=== PATIENT | female | born 1965 | race Caucasian/White ===

== ENCOUNTER 2019-03-13 18:10 | Observation (INO) | payer OTHER ==
[2019-03-13] MEDS ORDERED: Sodium Chloride 0.9% 10 ML Syringe FLUSH PRN (18:12)
[2019-03-13] MEDS ORDERED: Sodium Chloride 0.9% 2.5 ML Syringe FLUSH PRN (18:12)
[2019-03-13] MEDS ORDERED: Diltiazem 25 MG/5 ML SDV IVPUSH ONE ×2 (18:21→18:46)
[2019-03-13] MEDS ORDERED: Diltiazem 25 MG/5 ML SDV ONE (18:21)
[2019-03-13] MEDS ORDERED: Sodium Chloride 0.9% 1,000 ML IV ONE (18:23)
[2019-03-13] MEDS ORDERED: Aspirin 81 MG Tab.Chew PO ONE (18:24)
--- NOTE | 2019-03-13 18:27 | EDM.PDOC ---
ED HPI GENERAL MEDICAL PROBLEM - General Chief Complaint: Abdominal Pain Stated Complaint: ABD PAIN,SHORTNESS OF BREATH Time Seen by Provider: 03/13/19 18:51 - History of Present Illness INITIAL COMMENTS - FREE TEXT/NARRATIVE: HISTORY AND PHYSICAL: History of present illness: Patient is a 53-year-old female with history of atrial fibrillation with been off her medications for approximately 1 month due to personal reasons who presents now with concern of rapid heart rate. She denies chest pain nausea vomiting diaphoresis or other complaints she states she had been on metoprolol prior along with aspirin daily and states that she was in sinus rhythm prior. Patient also states she's had intermittent abdominal bloating without abdominal pain. Review of systems: As per history of present illness and below otherwise all systems reviewed and negative. Past medical history: As per history of present illness and as reviewed below otherwise noncontributory. Surgical history: As per history of present illness and as reviewed below otherwise noncontributory. Social history: No reported history of drug or alcohol abuse. Family history: As per history of present illness and as reviewed below otherwise noncontributory. Physical exam: HEENT: Atraumatic, normocephalic, pupils reactive, negative for conjunctival pallor or scleral icterus, mucous membranes moist, throat clear, neck supple, nontender, trachea midline. Lungs: Clear to auscultation, breath sounds equal bilaterally, chest nontender. Heart: S1S2, irregular irregular with a heart rate of approximately 180, negative for clicks, rubs, or JVD. Abdomen: Soft, nondistended, nontender. Negative for masses or hepatosplenomegaly. Negative for costovertebral tenderness. Pelvis: Stable nontender. Genitourinary: Deferred. Rectal: Deferred. Extremities: Atraumatic, negative for cords or calf pain. Neurovascular unremarkable. Neuro: Awake, alert, oriented. Cranial nerves II through XII unremarkable. Cerebellum unremarkable. Motor and sensory unremarkable throughout. Exam nonfocal. 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 abdomen Pain Score (Numeric/FACES): 8 - Related Data Allergies Allergy/AdvReac Type Severity Reaction Status Date / Time No Known Allergies Allergy Verified 03/13/19 18:23 Home Meds: Home Meds Metoprolol Tartrate [Lopressor] 10 mg PO BID 03/13/19 [History] ED ROS GENERAL - Review of Systems Review Of Systems: ROS reveals no pertinent complaints other than HPI. ED EXAM, GENERAL - Physical Exam Exam: See Below (dictation) Course - Vital Signs Last Recorded V/S: Last Vital Signs Temp 36.2 C 03/13/19 18:13 Pulse 148 H 03/13/19 18:31 Resp 18 03/13/19 18:31 BP 116/73 03/13/19 18:31 Pulse Ox 98 03/13/19 18:31 - Orders/Labs/Meds Orders: Active Orders 24 hr Category Date Time Status Patient Status [ADT] Stat ADT 03/13/19 18:31 Active EKG Documentation Completion [RC] STAT Care 03/13/19 18:12 Active Chest 1V Frontal [CR] Stat Exams 03/13/19 18:12 Taken B-TYPE NATRIURETIC PEPTIDE,BNP [CHEM] Stat Lab 03/13/19 18:16 Received UA W/MICROSCOPIC [URIN] Stat Lab 03/13/19 18:13 Ordered Sodium Chloride 0.9% [Normal Saline] 1,000 ml Med 03/13/19 18:23 Active IV STAT Sodium Chloride 0.9% [Saline Flush] Med 03/13/19 18:12 Active 10 ml FLUSH ASDIRECTED PRN Sodium Chloride 0.9% [Saline Flush] Med 03/13/19 18:12 Active 2.5 ml FLUSH ASDIRECTED PRN Saline Lock Insert [OM.PC] Stat Oth 03/13/19 18:12 Ordered Medication Orders Sodium Chloride (Normal Saline) 1,000 mls @ 999 mls/hr IV STAT ONE Stop: 03/13/19 19:23 Last Admin: 03/13/19 18:26 Dose: 999 mls/hr Sodium Chloride (Saline Flush) 10 ml FLUSH ASDIRECTED PRN PRN Reason: Keep Vein Open Last Admin: 03/13/19 18:26 Dose: 10 ml Sodium Chloride (Saline Flush) 2.5 ml FLUSH ASDIRECTED PRN PRN Reason: Keep Vein Open Last Admin: 03/13/19 18:26 Dose: 2.5 ml Labs: Laboratory Tests 03/13/19 03/13/19 03/13/19 Range/Units 18:16 18:16 18:16 WBC 8.01 (4.0-11.0) K/uL RBC 3.98 L (4.30-5.90) M/uL Hgb 15.2 (12.0-16.0) g/dL Hct 45.9 (36.0-46.0) % MCV 115.3 H (80.0-98.0) fL MCH 38.2 H (27.0-32.0) pg MCHC 33.1 (31.0-37.0) g/dL RDW Std Deviation 64.5 H (28.0-62.0) fl RDW Coeff of Papo 15 (11.0-15.0) % Plt Count 152 (150-400) K/uL MPV 13.00 H (7.40-12.00) fL Neut % (Auto) 68.1 (48.0-80.0) % Lymph % (Auto) 21.8 (16.0-40.0) % [place] % (Auto) 9.0 (0.0-15.0) % Eos % (Auto) 0.7 (0.0-7.0) % Baso % (Auto) 0.4 (0.0-1.5) % Neut # (Auto) 5.5 (1.4-5.7) K/uL Lymph # (Auto) 1.8 (0.6-2.4) K/uL [place] # (Auto) 0.7 (0.0-0.8) K/uL Eos # (Auto) 0.1 (0.0-0.7) K/uL Baso # (Auto) 0.0 (0.0-0.1) K/uL Nucleated RBC % 0.0 /100WBC Nucleated RBCs # 0 K/uL INR 1.53 Sodium 139 (136-145) mmol/L Potassium 3.9 (3.5-5.1) mmol/L Chloride 103 (98-107) mmol/L Carbon Dioxide 22.6 (21.0-32.0) mmol/L BUN 15 (7.0-18.0) mg/dL Creatinine 1.0 (0.6-1.0) mg/dL Est Cr Clr Drug Dosing 54.89 mL/min Estimated GFR (MDRD) 57.6 ml/min Glucose 143 H (74-106) mg/dL Calcium 9.2 (8.5-10.1) mg/dL Total Bilirubin 1.6 H (0.2-1.0) mg/dL AST 103 H (15-37) IU/L ALT 83 H (14-63) IU/L Alkaline Phosphatase 181 H (46-116) U/L Troponin I < 0.050 (0.000-0.056) ng/mL Total Protein 6.3 L (6.4-8.2) g/dL Albumin 3.2 L (3.4-5.0) g/dL Globulin 3.1 (2.6-4.0) g/dL Albumin/Globulin Ratio 1.0 (0.9-1.6) Meds: Medications Generic Name Dose Route Start Last Admin Trade Name Oumarq PRN Reason Stop Dose Admin Sodium Chloride 1,000 mls @ 999 mls/hr 03/13/19 18:23 03/13/19 18:26 Normal Saline IV 03/13/19 19:23 999 mls/hr STAT ONE Administration Sodium Chloride 10 ml 03/13/19 18:12 03/13/19 18:26 Saline Flush FLUSH 10 ml ASDIRECTED PRN Administration Keep Vein Open Sodium Chloride 2.5 ml 03/13/19 18:12 03/13/19 18:26 Saline Flush FLUSH 2.5 ml ASDIRECTED PRN Administration Keep Vein Open Discontinued Medications Generic Name Dose Route Start Last Admin Trade Name Laquita PRN Reason Stop Dose Admin Aspirin 324 mg 03/13/19 18:24 03/13/19 18:29 Aspirin PO 03/13/19 18:25 324 mg ONETIME ONE Administration Diltiazem HCl 25 mg 03/13/19 18:21 03/13/19 18:26 Diltiazem IVPUSH 03/13/19 18:22 25 mg ONETIME ONE Administration Diltiazem HCl Confirm 03/13/19 18:21 03/13/19 18:28 Diltiazem Administered 03/13/19 18:22 Not Given Dose 25 mg .ROUTE .STK-MED ONE Diltiazem HCl 25 mg 03/13/19 18:46 Diltiazem IVPUSH 03/13/19 18:47 ONETIME ONE Metoprolol Tartrate 50 mg 03/13/19 18:49 Lopressor PO 03/13/19 18:50 ONETIME ONE Departure - Departure Time of Disposition: 18:51 Disposition: Refer to Observation Condition: Good Clinical Impression: Atrial fibrillation with rapid ventricular response - Discharge Information Referrals: PCP,None [Primary Care Provider] - Forms: ED Department Discharge - My Orders Last 24 Hours: My Active Orders 03/13/19 18:16 B-TYPE NATRIURETIC PEPTIDE,BNP [CHEM] Stat 03/13/19 18:23 Sodium Chloride 0.9% [Normal Saline] 1,000 ml IV STAT 03/13/19 18:31 Patient Status [ADT] Stat - Assessment/Plan Last 24 Hours: My Active Orders 03/13/19 18:16 B-TYPE NATRIURETIC PEPTIDE,BNP [CHEM] Stat 03/13/19 18:23 Sodium Chloride 0.9% [Normal Saline] 1,000 ml IV STAT 03/13/19 18:31 Patient Status [ADT] Stat
[2019-03-13 18:47] LABS: BLOOD UREA NITROGEN,BUN 15 mg/dL (7.0-18.0); CARBON DIOXIDE,CO2 22.6 mmol/L (21.0-32.0); CHLORIDE,CL 103 mmol/L (98-107); GLUCOSE RANDOM 143 mg/dL (74-106); POTASSIUM,K 3.9 mmol/L (3.5-5.1); SODIUM,NA 139 mmol/L (136-145)
[2019-03-13] MEDS ORDERED: Metoprolol Tartrate 50 MG Tab PO ONE (18:49)
--- NOTE | 2019-03-13 19:01 | CR ---
Shortness of breath. Single-view chest x-ray. No comparison studies are available. Findings: Enlarged cardiac silhouette. Bibasilar atelectasis and/or infiltrates. Slight blunting of the costophrenic angles could represent effusions. Old left posterior rib fractures. Dictated by Lauren Ortiz MD @ Mar 13 2019 6:59PM Signed by Dr. Lauren Ortiz @ Mar 13 2019 7:00PM
[2019-03-13] MEDS: Sodium Chloride 0.9% 1,000 ML IV SCH ×2 (19:24→23:25)
[2019-03-13] MEDS ORDERED: Sodium Chloride 0.9% 1,000 ML IV SCH (19:30)
[2019-03-13] MEDS ORDERED: Furosemide 40 MG Tab PO ONE (19:39)
[2019-03-13] MEDS ORDERED: Diltiazem 25 MG/5 ML SDV IVPUSH PRN (19:46)
--- NOTE | 2019-03-13 19:57 | PCM.HP.2 ---
<Edmond Gamble - Last Filed: 03/13/19 19:50> H&P History of Present Illness - General Date of Service: 03/13/19 Admit Problem/Dx: Admission Diagnosis/Problem Admission Diagnosis/Problem Atrial fibrillation with rapid ventricular response - History of Present Illness Initial Comments - Free Text/Narative: Patient is a 56-year-old female with a past medical history of A. fib, anxiety; presenting today with abdominal discomfort; states the abdomen was swelling for the past 3-4 weeks; initially in the epigastric area and then moved to her lower abdomen and then into her sides. Of note patient has not taken her metoprolol for 3 to 4 weeks; recently moved here from [place] and has not refilled her medications secondary to not having a PCP. For 2 weeks patient also has been using [id number] decongestants including Sudafed to help with her cough and congestion. Patient however denies any fevers, chills, body aches, chest pain, shortness of breath, diarrhea. Endorses some mild constipation for which she has used vavr-rta-[id number] medications including Pedialyte; also endorsing some reduced appetite. Patient states she smokes 10 cigarettes daily; sometimes more on other days. Patient also does not endorse heavy alcohol use. abdomen Pain Score (Numeric/FACES): 8 - Related Data Allergies/Adverse Reactions: Allergies Allergy/AdvReac Type Severity Reaction Status Date / Time No Known Allergies Allergy Verified 03/13/19 20:55 Home Medications: Home Meds Metoprolol Tartrate [Lopressor] 10 mg PO BID 03/13/19 [History] Past Medical History HEENT History: Reports: None Cardiovascular History: Reports: Afib, Hypertension Respiratory History: Reports: None Gastrointestinal History: Reports: None Genitourinary History: Reports: Other (See Below) Other Genitourinary History: hx of kidney infections [employer] History: Reports: Musculoskeletal History: Reports: None Neurological History: Reports: None Psychiatric History: Reports: None Endocrine/Metabolic History: Reports: None Hematologic History: Reports: None Immunologic History: Reports: None Oncologic (Cancer) History: Reports: None Dermatologic History: Reports: None - Infectious Disease History Infectious Disease History: Reports: Chicken Pox - Past Surgical History Head Surgeries/Procedures: Reports: None HEENT Surgical History: Reports: None Cardiovascular Surgical History: Reports: None Respiratory Surgical History: Reports: None GI Surgical History: Reports: None Female Surgical History: Reports: Section, Other (See Below) Other Female Surgeries/Procedures: partial tubal ligation Endocrine Surgical History: Reports: None Neurological Surgical History: Reports: None Musculoskeletal Surgical History: Reports: None Oncologic Surgical History: Reports: None Dermatological Surgical History: Reports: None Social & Family History - Family History Family Medical History: Noncontributory - Tobacco Use Smoking Status *Q: Current Every Day Smoker Years of Tobacco use: 35 Packs/Tins Daily: 0.3 - Caffeine Use Caffeine Use: Reports: Coffee, Soda - Recreational Drug Use Recreational Drug Use: No H&P Review of Systems - Review of Systems: Review Of Systems: See Below General: Reports: No Symptoms. Denies: Fever, Chills HEENT: Reports: No Symptoms. Denies: Headaches Pulmonary: Reports: No Symptoms, Cough. Denies: Shortness of Breath Gastrointestinal: Reports: Constipation, Decreased Appetite, Distension. Denies : Abdominal Pain, Diarrhea Genitourinary: Reports: No Symptoms Musculoskeletal: Reports: No Symptoms Skin: Reports: No Symptoms Psychiatric: Reports: No Symptoms Neurological: Reports: No Symptoms. Denies: Confusion, Dizziness, Headache Exam - Exam Exam: See Below - Vital Signs Vital Signs: Last Vital Signs Temp 97.2 F 03/13/19 18:13 Pulse 129 H 03/13/19 19:27 Resp 22 H 03/13/19 19:27 BP 124/72 03/13/19 19:27 Pulse Ox 92 L 03/13/19 19:27 Weight: 58.967 kg - Exam Quality Assessment: No: Supplemental Oxygen General: Alert, Oriented HEENT: EOMI, Mucosa Moist & [place], Posterior Pharynx Clear, Other (mild yellowing of eyes; possibly baseline.) Neck: Supple, Trachea Midline Lungs: Clear to Auscultation, Normal Respiratory Effort Cardiovascular: Regular Rhythm, Tachycardia GI/Abdominal Exam: Non-Tender, No Distention, No Mass, Other (negative Stevens' s. mild swelling however no overt fluid wave; no organomegaly. No point tenderness. No rebound tenderness.). No: Rebound, Hepatomegaly Back Exam: Normal Inspection Extremities: Normal Range of Motion, Non-Tender, Normal Capillary Refill, Other (+1 pitting edema bilateral lower extremities up to two thirds of legs) Skin: Warm, Dry, Intact Neurological: Cranial Nerves Intact Neuro Extensive - Mental Status: Alert, Oriented x3 Neuro Extensive - Motor, Sensory, Reflexes: CN II-XII Intact Psychiatric: Alert, Anxious (mild) - Patient Data Lab Results Last 24 hrs: Laboratory Results - last 24 hr 03/13/19 03/13/19 03/13/19 Range/Units 18:16 18:16 18:16 WBC 8.01 (4.0-11.0) K/uL RBC 3.98 L (4.30-5.90) M/uL Hgb 15.2 (12.0-16.0) g/dL Hct 45.9 (36.0-46.0) % MCV 115.3 H (80.0-98.0) fL MCH 38.2 H (27.0-32.0) pg MCHC 33.1 (31.0-37.0) g/dL RDW Std Deviation 64.5 H (28.0-62.0) fl RDW Coeff of Papo 15 (11.0-15.0) % Plt Count 152 (150-400) K/uL MPV 13.00 H (7.40-12.00) fL Neut % (Auto) 68.1 (48.0-80.0) % Lymph % (Auto) 21.8 (16.0-40.0) % Mclennan % (Auto) 9.0 (0.0-15.0) % Eos % (Auto) 0.7 (0.0-7.0) % Baso % (Auto) 0.4 (0.0-1.5) % Neut # (Auto) 5.5 (1.4-5.7) K/uL Lymph # (Auto) 1.8 (0.6-2.4) K/uL Mclennan # (Auto) 0.7 (0.0-0.8) K/uL Eos # (Auto) 0.1 (0.0-0.7) K/uL Baso # (Auto) 0.0 (0.0-0.1) K/uL Nucleated RBC % 0.0 /100WBC Nucleated RBCs # 0 K/uL INR 1.53 Sodium 139 (136-145) mmol/L Potassium 3.9 (3.5-5.1) mmol/L Chloride 103 (98-107) mmol/L Carbon Dioxide 22.6 (21.0-32.0) mmol/L BUN 15 (7.0-18.0) mg/dL Creatinine 1.0 (0.6-1.0) mg/dL Est Cr Clr Drug Dosing 54.89 mL/min Estimated GFR (MDRD) 57.6 ml/min Glucose 143 H (74-106) mg/dL Calcium 9.2 (8.5-10.1) mg/dL Total Bilirubin 1.6 H (0.2-1.0) mg/dL AST 103 H (15-37) IU/L ALT 83 H (14-63) IU/L Alkaline Phosphatase 181 H (46-116) U/L Troponin I < 0.050 (0.000-0.056) ng/mL B-Natriuretic Peptide (<100) PG/ML Total Protein 6.3 L (6.4-8.2) g/dL Albumin 3.2 L (3.4-5.0) g/dL Globulin 3.1 (2.6-4.0) g/dL Albumin/Globulin Ratio 1.0 (0.9-1.6) Urine Color Urine Appearance Urine pH (5.0-8.0) Ur Specific [place] (1.001-1.035) Urine Protein (NEGATIVE) mg/dL Urine Glucose (UA) (NEGATIVE) mg/dL Urine Ketones (NEGATIVE) mg/dL Urine Occult Blood (NEGATIVE) Urine Nitrite (NEGATIVE) Urine Bilirubin (NEGATIVE) Urine Ictotest Urine Urobilinogen (<2.0) EU/dL Ur Leukocyte Esterase (NEGATIVE) Urine RBC (0-2/HPF) Urine WBC (0-5/HPF) Ur Epithelial Cells (NONE-FEW) Urine Bacteria (NEGATIVE) Hyaline Casts (0-2/LPF) Urine Mucus (NONE-MOD) 03/13/19 03/13/19 Range/Units 18:16 19:14 WBC (4.0-11.0) K/uL RBC (4.30-5.90) M/uL Hgb (12.0-16.0) g/dL Hct (36.0-46.0) % MCV (80.0-98.0) fL MCH (27.0-32.0) pg MCHC (31.0-37.0) g/dL RDW Std Deviation (28.0-62.0) fl RDW Coeff of Papo (11.0-15.0) % Plt Count (150-400) K/uL MPV (7.40-12.00) fL Neut % (Auto) (48.0-80.0) % Lymph % (Auto) (16.0-40.0) % Mclennan % (Auto) (0.0-15.0) % Eos % (Auto) (0.0-7.0) % Baso % (Auto) (0.0-1.5) % Neut # (Auto) (1.4-5.7) K/uL Lymph # (Auto) (0.6-2.4) K/uL [place]clennan # (Auto) (0.0-0.8) K/uL Eos # (Auto) (0.0-0.7) K/uL Baso # (Auto) (0.0-0.1) K/uL Nucleated RBC % /100WBC Nucleated RBCs # K/uL INR Sodium (136-145) mmol/L Potassium (3.5-5.1) mmol/L Chloride (98-107) mmol/L Carbon Dioxide (21.0-32.0) mmol/L BUN (7.0-18.0) mg/dL Creatinine (0.6-1.0) mg/dL Est Cr Clr Drug Dosing mL/min Estimated GFR (MDRD) ml/min Glucose (74-106) mg/dL Calcium (8.5-10.1) mg/dL Total Bilirubin (0.2-1.0) mg/dL AST (15-37) IU/L ALT (14-63) IU/L Alkaline Phosphatase (46-116) U/L Troponin I (0.000-0.056) ng/mL B-Natriuretic Peptide 1103 H (<100) PG/ML Total Protein (6.4-8.2) g/dL Albumin (3.4-5.0) g/dL Globulin (2.6-4.0) g/dL Albumin/Globulin Ratio (0.9-1.6) Urine Color DARK YELLOW Urine Appearance SLT CLOUDY Urine pH 5.5 (5.0-8.0) Ur Specific [place] >= 1.030 (1.001-1.035) Urine Protein 100 H (NEGATIVE) mg/dL Urine Glucose (UA) NEGATIVE (NEGATIVE) mg/dL Urine Ketones NEGATIVE (NEGATIVE) mg/dL Urine Occult Blood TRACE-INTACT H (NEGATIVE) Urine Nitrite POSITIVE H (NEGATIVE) Urine Bilirubin MODERATE H (NEGATIVE) Urine Ictotest POSITIVE Urine Urobilinogen 2.0 H (<2.0) EU/dL Ur Leukocyte Esterase SMALL H (NEGATIVE) Urine RBC 1-3 (0-2/HPF) Urine WBC 4-7 (0-5/HPF) Ur Epithelial Cells FEW (NONE-FEW) Urine Bacteria 3+ H (NEGATIVE) Hyaline Casts 1-3 (0-2/LPF) Urine Mucus MODERATE (NONE-MOD) Result Diagrams: 03/13/19 18:16 03/13/19 18:16 - Problem List (1) Anxiety SNOMED Code(s): 98549386 ICD Code: F41.9 - ANXIETY DISORDER, UNSPECIFIED Status: Acute Current Visit: Yes (2) Medical non-compliance SNOMED Code(s): 484582055 ICD Code: Z91.19 - PATIENT'S NONCOMPLIANCE [facility] Status: Acute Current Visit: Yes (3) Transaminitis SNOMED Code(s): 009453935, 383641507 ICD Code: R74.0 - NONSPEC ELEV OF LEVELS OF TRANSAMNS & LACTIC ACID DEHYDRGNSE Status: Acute Current Visit: Yes (4) Macrocytic anemia SNOMED Code(s): 84296522 ICD Code: D53.9 - NUTRITIONAL ANEMIA, UNSPECIFIED Status: Acute Current Visit: Yes (5) Hyperbilirubinemia SNOMED Code(s): 52685908 ICD Code: E80.6 - OTHER DISORDERS OF BILIRUBIN METABOLISM Status: Acute Current Visit: Yes (6) Atrial fibrillation with rapid ventricular response SNOMED Code(s): 414010115663312 ICD Code: I48.91 - UNSPECIFIED ATRIAL FIBRILLATION Status: Acute Current Visit: Yes Problem List Initiated/Reviewed/Updated: Yes Orders Last 24hrs: Active Orders 24 hr Category Date Time Status Patient Status [ADT] Stat ADT 03/13/19 18:31 Active Intake and Output Strict [RC] ASDIRECTED Care 03/13/19 19:31 Active Telemetry Monitoring [Cardiac Monitoring] [RC] . Care 03/13/19 19:31 Active DIRECTED Vital Signs [RC] PER UNIT ROUTINE Care 03/13/19 19:31 Active Heart Healthy Diet [DIET] Diet 03/14/19 Breakfast Active Echo 2D wo Cont [US] Stat Exams 03/13/19 19:43 Ordered Gallbladder [Abdomen Ltd] [US] Routine Exams 03/13/19 19:43 Ordered CBC WITH AUTO DIFF [HEME] AM Lab 03/14/19 05:11 Ordered CBC WITH AUTO DIFF [HEME] AM Lab 03/15/19 05:11 Ordered CBC WITH AUTO DIFF [HEME] AM Lab 03/16/19 05:11 Ordered COMPREHENSIVE METABOLIC PN,CMP [CHEM] AM Lab 03/14/19 05:11 Ordered COMPREHENSIVE METABOLIC PN,CMP [CHEM] AM Lab 03/15/19 05:11 Ordered COMPREHENSIVE METABOLIC PN,CMP [CHEM] AM Lab 03/16/19 05:11 Ordered COMPREHENSIVE METABOLIC PN,CMP [CHEM] AM Lab 03/17/19 05:11 Ordered Diltiazem Med 03/13/19 19:46 Ordered 20 mg IVPUSH ONETIME PRN Enoxaparin [Lovenox] Med 03/13/19 19:45 Ordered 60 mg SUBCUT Q12H Sodium Chloride 0.9% [Normal Saline] 1,000 ml Med 03/13/19 19:30 Active IV ASDIRECTED Sodium Chloride 0.9% [Saline Flush] Med 03/13/19 18:12 Active 10 ml FLUSH ASDIRECTED PRN Sodium Chloride 0.9% [Saline Flush] Med 03/13/19 18:12 Active 2.5 ml FLUSH ASDIRECTED PRN Saline Lock Insert [OM.PC] Stat Oth 03/13/19 18:12 Ordered Code Status [Resuscitation Status] Routine Resus Stat 03/13/19 19:30 Ordered Medication Orders Diltiazem HCl (Diltiazem) 20 mg IVPUSH ONETIME PRN PRN Reason: Tachycardia Enoxaparin Sodium (Lovenox) 60 mg SUBCUT Q12H BRITTANY Sodium Chloride (Normal Saline) 1,000 mls @ 150 mls/hr IV ASDIRECTED BRITTANY Last Admin: 03/13/19 19:24 Dose: 150 mls/hr Sodium Chloride (Saline Flush) 10 ml FLUSH ASDIRECTED PRN PRN Reason: Keep Vein Open Last Admin: 03/13/19 18:26 Dose: 10 ml Sodium Chloride (Saline Flush) 2.5 ml FLUSH ASDIRECTED PRN PRN Reason: Keep Vein Open Last Admin: 03/13/19 18:26 Dose: 2.5 ml Assessment/Plan Comment:: Assessment: 1. A. fib with RVR secondary to noncompliance and [id number] decongestant use. 2. Elevated BNP 3. Transaminitis 4. Elevated bilirubin 5. Macrocytic anemia 5. Past medical history: A. fib, anxiety, tobacco abuse Admit patient to observation. Vitals per routine. Intake outtake :strict . Full code. Diet: Heart healthy. DVT prophylaxis: Lovenox 1 mg/kg Q12 hours 1. A. fib with RVR: Telemetry. Rate control with metoprolol 50 mg; repeat metoprolol in a.m.; when necessary dose of IV Cardizem 20 mg for rate greater than 150. 2. Elevated BNP: 40 of Lasix by mouth one-time dose CBC, CMP, in a.m. Echocardiogram will be ordered. Chest x-ray: Mild cardiomegaly; no acute infiltrates; awaiting official read 3. Tobacco abuse: Nicotine patch 14. 4. Transaminitis: Continue to monitor.right upper quadrant ultrasound. Repeat LFTs. 5. Elevated bilirubin: Continue to monitor.possibly secondary to alcohol use 6. Macrocytic anemia: We'll order folate and B12. <Sammy Cobian - Last Filed: 03/14/19 07:14> H&P History of Present Illness - General Admit Problem/Dx: Admission Diagnosis/Problem Admission Diagnosis/Problem Atrial fibrillation with rapid ventricular response I have examined the patient independently of medical radiation therapist, Dr. Mavis MD. I have discussed the case with him. I have reviewed and agree with the plan of care as outlined for the patient by him. Please see orders. Also with elevated AST/ALT. US liver ordered. Exam - Vital Signs Vital Signs: Last Vital Signs Temp 37.1 C 03/14/19 04:00 Pulse 116 H 03/14/19 04:00 Resp 22 H 03/14/19 04:00 BP 103/75 03/14/19 04:00 Pulse Ox 92 L 03/14/19 04:00 - Patient Data Lab Results Last 24 hrs: Laboratory Results - last 24 hr 03/13/19 03/13/19 03/13/19 Range/Units 18:16 18:16 18:16 WBC 8.01 (4.0-11.0) K/uL RBC 3.98 L (4.30-5.90) M/uL Hgb 15.2 (12.0-16.0) g/dL Hct 45.9 (36.0-46.0) % MCV 115.3 H (80.0-98.0) fL MCH 38.2 H (27.0-32.0) pg MCHC 33.1 (31.0-37.0) g/dL RDW Std Deviation 64.5 H (28.0-62.0) fl RDW Coeff of Papo 15 (11.0-15.0) % Plt Count 152 (150-400) K/uL MPV 13.00 H (7.40-12.00) fL Neut % (Auto) 68.1 (48.0-80.0) % Lymph % (Auto) 21.8 (16.0-40.0) % [place] % (Auto) 9.0 (0.0-15.0) % Eos % (Auto) 0.7 (0.0-7.0) % Baso % (Auto) 0.4 (0.0-1.5) % Neut # (Auto) 5.5 (1.4-5.7) K/uL Lymph # (Auto) 1.8 (0.6-2.4) K/uL [place] # (Auto) 0.7 (0.0-0.8) K/uL Eos # (Auto) 0.1 (0.0-0.7) K/uL Baso # (Auto) 0.0 (0.0-0.1) K/uL Nucleated RBC % 0.0 /100WBC Nucleated RBCs # 0 K/uL INR 1.53 Sodium 139 (136-145) mmol/L Potassium 3.9 (3.5-5.1) mmol/L Chloride 103 (98-107) mmol/L Carbon Dioxide 22.6 (21.0-32.0) mmol/L BUN 15 (7.0-18.0) mg/dL Creatinine 1.0 (0.6-1.0) mg/dL Est Cr Clr Drug Dosing 54.89 mL/min Estimated GFR (MDRD) 57.6 ml/min Glucose 143 H (74-106) mg/dL Calcium 9.2 (8.5-10.1) mg/dL Total Bilirubin 1.6 H (0.2-1.0) mg/dL AST 103 H (15-37) IU/L ALT 83 H (14-63) IU/L Alkaline Phosphatase 181 H (46-116) U/L Troponin I < 0.050 (0.000-0.056) ng/mL B-Natriuretic Peptide (<100) PG/ML Total Protein 6.3 L (6.4-8.2) g/dL Albumin 3.2 L (3.4-5.0) g/dL Globulin 3.1 (2.6-4.0) g/dL Albumin/Globulin Ratio 1.0 (0.9-1.6) Urine Color Urine Appearance Urine pH (5.0-8.0) Ur Specific [place] (1.001-1.035) Urine Protein (NEGATIVE) mg/dL Urine Glucose (UA) (NEGATIVE) mg/dL Urine Ketones (NEGATIVE) mg/dL Urine Occult Blood (NEGATIVE) Urine Nitrite (NEGATIVE) Urine Bilirubin (NEGATIVE) Urine Ictotest Urine Urobilinogen (<2.0) EU/dL Ur Leukocyte Esterase (NEGATIVE) Urine RBC (0-2/HPF) Urine WBC (0-5/HPF) Ur Epithelial Cells (NONE-FEW) Urine Bacteria (NEGATIVE) Hyaline Casts (0-2/LPF) Urine Mucus (NONE-MOD) 03/13/19 03/13/19 03/14/19 Range/Units 18:16 19:14 06:17 WBC 11.57 H (4.0-11.0) K/uL RBC 3.79 L (4.30-5.90) M/uL Hgb 14.6 (12.0-16.0) g/dL Hct 44.3 (36.0-46.0) % MCV 116.9 H (80.0-98.0) fL MCH 38.5 H (27.0-32.0) pg MCHC 33.0 (31.0-37.0) g/dL RDW Std Deviation 64.7 H (28.0-62.0) fl RDW Coeff of Papo 15 (11.0-15.0) % Plt Count 143 L (150-400) K/uL MPV 13.20 H (7.40-12.00) fL Neut % (Auto) 76.1 (48.0-80.0) % Lymph % (Auto) 11.9 L (16.0-40.0) % [place] % (Auto) 11.7 (0.0-15.0) % Eos % (Auto) 0.1 (0.0-7.0) % Baso % (Auto) 0.2 (0.0-1.5) % Neut # (Auto) 8.8 H (1.4-5.7) K/uL Lymph # (Auto) 1.4 (0.6-2.4) K/uL [place] # (Auto) 1.4 H (0.0-0.8) K/uL Eos # (Auto) 0.0 (0.0-0.7) K/uL Baso # (Auto) 0.0 (0.0-0.1) K/uL Nucleated RBC % 0.6 /100WBC Nucleated RBCs # 0 K/uL INR Sodium (136-145) mmol/L Potassium (3.5-5.1) mmol/L Chloride (98-107) mmol/L Carbon Dioxide (21.0-32.0) mmol/L BUN (7.0-18.0) mg/dL Creatinine (0.6-1.0) mg/dL Est Cr Clr Drug Dosing mL/min Estimated GFR (MDRD) ml/min Glucose (74-106) mg/dL Calcium (8.5-10.1) mg/dL Total Bilirubin (0.2-1.0) mg/dL AST (15-37) IU/L ALT (14-63) IU/L Alkaline Phosphatase (46-116) U/L Troponin I (0.000-0.056) ng/mL B-Natriuretic Peptide 1103 H (<100) PG/ML Total Protein (6.4-8.2) g/dL Albumin (3.4-5.0) g/dL Globulin (2.6-4.0) g/dL Albumin/Globulin Ratio (0.9-1.6) Urine Color DARK YELLOW Urine Appearance SLT CLOUDY Urine pH 5.5 (5.0-8.0) Ur Specific [place] >= 1.030 (1.001-1.035) Urine Protein 100 H (NEGATIVE) mg/dL Urine Glucose (UA) NEGATIVE (NEGATIVE) mg/dL Urine Ketones NEGATIVE (NEGATIVE) mg/dL Urine Occult Blood TRACE-INTACT H (NEGATIVE) Urine Nitrite POSITIVE H (NEGATIVE) Urine Bilirubin MODERATE H (NEGATIVE) Urine Ictotest POSITIVE Urine Urobilinogen 2.0 H (<2.0) EU/dL Ur Leukocyte Esterase SMALL H (NEGATIVE) Urine RBC 1-3 (0-2/HPF) Urine WBC 4-7 (0-5/HPF) Ur Epithelial Cells FEW (NONE-FEW) Urine Bacteria 3+ H (NEGATIVE) Hyaline Casts 1-3 (0-2/LPF) Urine Mucus MODERATE (NONE-MOD) Result Diagrams: 03/14/19 06:17 03/13/19 18:16 Orders Last 24hrs: Active Orders 24 hr Category Date Time Status Patient Status [ADT] Stat ADT 03/13/19 18:31 Active EKG 12 Lead [EKG Documentation Completion] [RC] AM Care 03/14/19 06:47 Active Intake and Output Strict [RC] ASDIRECTED Care 03/13/19 19:31 Active Telemetry Monitoring [Cardiac Monitoring] [RC] Q8H Care 03/13/19 19:31 Active Vital Signs [RC] PER UNIT ROUTINE Care 03/13/19 19:31 Active Heart Healthy Diet [DIET] Diet 03/14/19 Breakfast Active Echo 2D wo Cont [US] Stat Exams 03/13/19 19:43 Ordered Gallbladder [Abdomen Ltd] [US] Routine Exams 03/13/19 19:43 Ordered CBC WITH AUTO DIFF [HEME] AM Lab 03/15/19 05:11 Ordered CBC WITH AUTO DIFF [HEME] AM Lab 03/16/19 05:11 Ordered COMPREHENSIVE METABOLIC PN,CMP [CHEM] AM Lab 03/14/19 06:17 Received COMPREHENSIVE METABOLIC PN,CMP [CHEM] AM Lab 03/15/19 05:11 Ordered COMPREHENSIVE METABOLIC PN,CMP [CHEM] AM Lab 03/16/19 05:11 Ordered COMPREHENSIVE METABOLIC PN,CMP [CHEM] AM Lab 03/17/19 05:11 Ordered FOLIC ACID [CHEM] Routine Lab 03/14/19 06:17 Received VITAMIN B12 [CHEM] Routine Lab 03/14/19 06:17 Received Diltiazem Med 03/13/19 19:46 Active 20 mg IVPUSH ONETIME PRN Enoxaparin [Lovenox] Med 03/13/19 20:00 Active 60 mg SUBCUT Q12H Metoprolol Tartrate [Lopressor] Med 03/14/19 08:00 Pending 10 mg PO BID Ondansetron [Zofran] Med 03/13/19 21:51 Active 4 mg IVPUSH Q6H PRN Sodium Chloride 0.9% [Normal Saline] 1,000 ml Med 03/13/19 19:30 Active IV ASDIRECTED Sodium Chloride 0.9% [Normal Saline] 500 ml Med 03/13/19 22:00 Active IV .BOLUS Sodium Chloride 0.9% [Saline Flush] Med 03/13/19 18:12 Active 10 ml FLUSH ASDIRECTED PRN Sodium Chloride 0.9% [Saline Flush] Med 03/13/19 18:12 Active 2.5 ml FLUSH ASDIRECTED PRN Temazepam [Restoril] Med 03/13/19 20:00 Active 15 mg PO BEDTIME PRN Saline Lock Insert [OM.PC] Stat Oth 03/13/19 18:12 Ordered Code Status [Resuscitation Status] Routine Resus Stat 03/13/19 19:30 Ordered Medication Orders Diltiazem HCl (Diltiazem) 20 mg IVPUSH ONETIME PRN PRN Reason: Tachycardia Enoxaparin Sodium (Lovenox) 60 mg SUBCUT Q12H [facility] Last Admin: 03/13/19 21:23 Dose: 60 mg Sodium Chloride (Normal Saline) 1,000 mls @ 150 mls/hr IV ASDIRECTED BRITTANY Last Admin: 03/13/19 23:25 Dose: 150 mls/hr Infusion: 03/13/19 23:25 Dose: 150 mls/hr Admin: 03/13/19 19:24 Dose: 150 mls/hr Sodium Chloride (Normal Saline) 500 mls @ 999 mls/hr IV .BOLUS [facility] Last Admin: 03/13/19 22:11 Dose: 999 mls/hr Non-Formulary Medication (Metoprolol Tartrate [Lopressor]) 10 mg PO BID [facility] Ondansetron HCl (Zofran) 4 mg IVPUSH Q6H PRN PRN Reason: Nausea/Vomiting Last Admin: 03/13/19 22:10 Dose: 4 mg Sodium Chloride (Saline Flush) 10 ml FLUSH ASDIRECTED PRN PRN Reason: Keep Vein Open Last Admin: 03/13/19 18:26 Dose: 10 ml Sodium Chloride (Saline Flush) 2.5 ml FLUSH ASDIRECTED PRN PRN Reason: Keep Vein Open Last Admin: 03/13/19 18:26 Dose: 2.5 ml Temazepam (Restoril) 15 mg PO BEDTIME PRN PRN Reason: Insomnia
[2019-03-13] MEDS ORDERED: Temazepam 15 MG Cap PO PRN (20:00)
[2019-03-13] MEDS: Enoxaparin 60 MG/0.6 ML Syringe SUBCUT SCH (21:23)
[2019-03-13] MEDS ORDERED: Ondansetron 4 MG/2 ML SDV IVPUSH PRN (21:51)
[2019-03-13] MEDS ORDERED: Sodium Chloride 0.9% 500 ML IV SCH (22:00)
[2019-03-14] MEDS ORDERED: Metoprolol Tartrate 25 MG Tab PO SCH ×2 (07:30→08:00)
[2019-03-14 07:57] LABS: CARBON DIOXIDE,CO2 20.3 mmol/L (21.0-32.0); POTASSIUM,K 6.2 mmol/L (3.5-5.1)
[2019-03-14] MEDS ORDERED: METOPROLOL TARTRATE PO SCH (08:00)
[2019-03-14] MEDS: Enoxaparin 60 MG/0.6 ML Syringe SUBCUT SCH (08:50)
[2019-03-14] MEDS ORDERED: Sulfamethoxazole/Trimethoprim 800-160 MG Tab PO SCH (09:00)
[2019-03-14] MEDS ORDERED: Sodium Polystyrene Sulfonate 15 GM/60 ML Susp 60 ML Bot PO ONE (09:30)
[2019-03-14] MEDS ORDERED: Furosemide 40 MG Tab PO ONE ×2 (09:31→17:36)
--- NOTE | 2019-03-14 09:56 | PCM.PN ---
<Edmond Gamble - Last Filed: 03/14/19 10:38> - General Info Date of Service: 03/14/19 Subjective Update: bedside exam: Patient seen at bedside; endorsing no new complaints; states she did not rest as much last night; denies any chest pain, shortness of breath, palpitations, diarrhea or constipation. Denies any dysuria, urinary urgency, or frequency. No other complaints at this time. - Patient Data Vitals - Most Recent: Last Vital Signs Temp 98.8 F 03/14/19 04:00 Pulse 92 03/14/19 08:45 Resp 22 H 03/14/19 04:00 BP 102/80 03/14/19 08:45 Pulse Ox 92 L 03/14/19 04:00 Weight - Most Recent: 66.315 kg I&O - Last 24 Hours: Intake & Output 03/13/19 03/14/19 03/14/19 22:59 06:59 14:59 Intake Total 500 400 Output Total 200 Balance 500 200 Lab Results Last 24 Hours: Laboratory Results - last 24 hr 03/13/19 03/13/19 03/13/19 Range/Units 18:16 18:16 18:16 WBC 8.01 (4.0-11.0) K/uL RBC 3.98 L (4.30-5.90) M/uL Hgb 15.2 (12.0-16.0) g/dL Hct 45.9 (36.0-46.0) % MCV 115.3 H (80.0-98.0) fL MCH 38.2 H (27.0-32.0) pg MCHC 33.1 (31.0-37.0) g/dL RDW Std Deviation 64.5 H (28.0-62.0) fl RDW Coeff of Papo 15 (11.0-15.0) % Plt Count 152 (150-400) K/uL MPV 13.00 H (7.40-12.00) fL Neut % (Auto) 68.1 (48.0-80.0) % Lymph % (Auto) 21.8 (16.0-40.0) % [place] % (Auto) 9.0 (0.0-15.0) % Eos % (Auto) 0.7 (0.0-7.0) % Baso % (Auto) 0.4 (0.0-1.5) % Neut # (Auto) 5.5 (1.4-5.7) K/uL Lymph # (Auto) 1.8 (0.6-2.4) K/uL [place] # (Auto) 0.7 (0.0-0.8) K/uL Eos # (Auto) 0.1 (0.0-0.7) K/uL Baso # (Auto) 0.0 (0.0-0.1) K/uL Nucleated RBC % 0.0 /100WBC Nucleated RBCs # 0 K/uL INR 1.53 Sodium 139 (136-145) mmol/L Potassium 3.9 (3.5-5.1) mmol/L Chloride 103 (98-107) mmol/L Carbon Dioxide 22.6 (21.0-32.0) mmol/L BUN 15 (7.0-18.0) mg/dL Creatinine 1.0 (0.6-1.0) mg/dL Est Cr Clr Drug Dosing 54.89 mL/min Estimated GFR (MDRD) 57.6 ml/min Glucose 143 H (74-106) mg/dL Calcium 9.2 (8.5-10.1) mg/dL Total Bilirubin 1.6 H (0.2-1.0) mg/dL AST 103 H (15-37) IU/L ALT 83 H (14-63) IU/L Alkaline Phosphatase 181 H (46-116) U/L Troponin I < 0.050 (0.000-0.056) ng/mL B-Natriuretic Peptide (<100) PG/ML Total Protein 6.3 L (6.4-8.2) g/dL Albumin 3.2 L (3.4-5.0) g/dL Globulin 3.1 (2.6-4.0) g/dL Albumin/Globulin Ratio 1.0 (0.9-1.6) Vitamin B12 (193-986) pg/mL Folate (8.60-58.90) ng/mL Urine Color Urine Appearance Urine pH (5.0-8.0) Ur Specific [place] (1.001-1.035) Urine Protein (NEGATIVE) mg/dL Urine Glucose (UA) (NEGATIVE) mg/dL Urine Ketones (NEGATIVE) mg/dL Urine Occult Blood (NEGATIVE) Urine Nitrite (NEGATIVE) Urine Bilirubin (NEGATIVE) Urine Ictotest Urine Urobilinogen (<2.0) EU/dL Ur Leukocyte Esterase (NEGATIVE) Urine RBC (0-2/HPF) Urine WBC (0-5/HPF) Ur Epithelial Cells (NONE-FEW) Urine Bacteria (NEGATIVE) Hyaline Casts (0-2/LPF) Urine Mucus (NONE-MOD) 03/13/19 03/13/19 03/14/19 Range/Units 18:16 19:14 06:17 WBC 11.57 H (4.0-11.0) K/uL RBC 3.79 L (4.30-5.90) M/uL Hgb 14.6 (12.0-16.0) g/dL Hct 44.3 (36.0-46.0) % MCV 116.9 H (80.0-98.0) fL MCH 38.5 H (27.0-32.0) pg MCHC 33.0 (31.0-37.0) g/dL RDW Std Deviation 64.7 H (28.0-62.0) fl RDW Coeff of Papo 15 (11.0-15.0) % Plt Count 143 L (150-400) K/uL MPV 13.20 H (7.40-12.00) fL Neut % (Auto) 76.1 (48.0-80.0) % Lymph % (Auto) 11.9 L (16.0-40.0) % [place] % (Auto) 11.7 (0.0-15.0) % Eos % (Auto) 0.1 (0.0-7.0) % Baso % (Auto) 0.2 (0.0-1.5) % Neut # (Auto) 8.8 H (1.4-5.7) K/uL Lymph # (Auto) 1.4 (0.6-2.4) K/uL [place] # (Auto) 1.4 H (0.0-0.8) K/uL Eos # (Auto) 0.0 (0.0-0.7) K/uL Baso # (Auto) 0.0 (0.0-0.1) K/uL Nucleated RBC % 0.6 /100WBC Nucleated RBCs # 0 K/uL INR Sodium (136-145) mmol/L Potassium (3.5-5.1) mmol/L Chloride (98-107) mmol/L Carbon Dioxide (21.0-32.0) mmol/L BUN (7.0-18.0) mg/dL Creatinine (0.6-1.0) mg/dL Est Cr Clr Drug Dosing mL/min Estimated GFR (MDRD) ml/min Glucose (74-106) mg/dL Calcium (8.5-10.1) mg/dL Total Bilirubin (0.2-1.0) mg/dL AST (15-37) IU/L ALT (14-63) IU/L Alkaline Phosphatase (46-116) U/L Troponin I (0.000-0.056) ng/mL B-Natriuretic Peptide 1103 H (<100) PG/ML Total Protein (6.4-8.2) g/dL Albumin (3.4-5.0) g/dL Globulin (2.6-4.0) g/dL Albumin/Globulin Ratio (0.9-1.6) Vitamin B12 (193-986) pg/mL Folate (8.60-58.90) ng/mL Urine Color DARK YELLOW Urine Appearance SLT CLOUDY Urine pH 5.5 (5.0-8.0) Ur Specific [place] >= 1.030 (1.001-1.035) Urine Protein 100 H (NEGATIVE) mg/dL Urine Glucose (UA) NEGATIVE (NEGATIVE) mg/dL Urine Ketones NEGATIVE (NEGATIVE) mg/dL Urine Occult Blood TRACE-INTACT H (NEGATIVE) Urine Nitrite POSITIVE H (NEGATIVE) Urine Bilirubin MODERATE H (NEGATIVE) Urine Ictotest POSITIVE Urine Urobilinogen 2.0 H (<2.0) EU/dL Ur Leukocyte Esterase SMALL H (NEGATIVE) Urine RBC 1-3 (0-2/HPF) Urine WBC 4-7 (0-5/HPF) Ur Epithelial Cells FEW (NONE-FEW) Urine Bacteria 3+ H (NEGATIVE) Hyaline Casts 1-3 (0-2/LPF) Urine Mucus MODERATE (NONE-MOD) 03/14/19 03/14/19 Range/Units 06:17 06:17 WBC (4.0-11.0) K/uL RBC (4.30-5.90) M/uL Hgb (12.0-16.0) g/dL Hct (36.0-46.0) % MCV (80.0-98.0) fL MCH (27.0-32.0) pg MCHC (31.0-37.0) g/dL RDW Std Deviation (28.0-62.0) fl RDW Coeff of Papo (11.0-15.0) % Plt Count (150-400) K/uL MPV (7.40-12.00) fL Neut % (Auto) (48.0-80.0) % Lymph % (Auto) (16.0-40.0) % [place] % (Auto) (0.0-15.0) % Eos % (Auto) (0.0-7.0) % Baso % (Auto) (0.0-1.5) % Neut # (Auto) (1.4-5.7) K/uL Lymph # (Auto) (0.6-2.4) K/uL [place] # (Auto) (0.0-0.8) K/uL Eos # (Auto) (0.0-0.7) K/uL Baso # (Auto) (0.0-0.1) K/uL Nucleated RBC % /100WBC Nucleated RBCs # K/uL INR Sodium 136 (136-145) mmol/L Potassium 6.2 H (3.5-5.1) mmol/L Chloride 104 (98-107) mmol/L Carbon Dioxide 20.3 L (21.0-32.0) mmol/L BUN 19 H (7.0-18.0) mg/dL Creatinine 1.4 H (0.6-1.0) mg/dL Est Cr Clr Drug Dosing 39.21 mL/min Estimated GFR (MDRD) 39.0 ml/min Glucose 107 H (74-106) mg/dL Calcium 8.4 L (8.5-10.1) mg/dL Total Bilirubin 2.7 H (0.2-1.0) mg/dL AST 1099 H (15-37) IU/L ALT 473 H (14-63) IU/L Alkaline Phosphatase 155 H (46-116) U/L Troponin I (0.000-0.056) ng/mL B-Natriuretic Peptide (<100) PG/ML Total Protein 5.5 L (6.4-8.2) g/dL Albumin 2.8 L (3.4-5.0) g/dL Globulin 2.7 (2.6-4.0) g/dL Albumin/Globulin Ratio 1.0 (0.9-1.6) Vitamin B12 1132 H (193-986) pg/mL Folate 14.30 (8.60-58.90) ng/mL Urine Color Urine Appearance Urine pH (5.0-8.0) Ur Specific [place] (1.001-1.035) Urine Protein (NEGATIVE) mg/dL Urine Glucose (UA) (NEGATIVE) mg/dL Urine Ketones (NEGATIVE) mg/dL Urine Occult Blood (NEGATIVE) Urine Nitrite (NEGATIVE) Urine Bilirubin (NEGATIVE) Urine Ictotest Urine Urobilinogen (<2.0) EU/dL Ur Leukocyte Esterase (NEGATIVE) Urine RBC (0-2/HPF) Urine WBC (0-5/HPF) Ur Epithelial Cells (NONE-FEW) Urine Bacteria (NEGATIVE) Hyaline Casts (0-2/LPF) Urine Mucus (NONE-MOD) Med Orders - Current: Current Medications Diltiazem HCl (Diltiazem) 20 mg IVPUSH ONETIME PRN PRN Reason: Tachycardia Enoxaparin Sodium (Lovenox) 60 mg SUBCUT Q12H [facility] Last Admin: 03/14/19 08:50 Dose: 60 mg Sodium Chloride (Normal Saline) 1,000 mls @ 150 mls/hr IV ASDIRECTED [facility] Last Admin: 03/13/19 23:25 Dose: 150 mls/hr Sodium Chloride (Normal Saline) 500 mls @ 999 mls/hr IV .BOLUS [facility] Last Admin: 03/13/19 22:11 Dose: 999 mls/hr Metoprolol Tartrate (Lopressor) 12.5 mg PO Q12H [facility] Last Admin: 03/14/19 08:45 Dose: 12.5 mg Ondansetron HCl (Zofran) 4 mg IVPUSH Q6H PRN PRN Reason: Nausea/Vomiting Last Admin: 03/13/19 22:10 Dose: 4 mg Sodium Chloride (Saline Flush) 10 ml FLUSH ASDIRECTED PRN PRN Reason: Keep Vein Open Last Admin: 03/13/19 18:26 Dose: 10 ml Sodium Chloride (Saline Flush) 2.5 ml FLUSH ASDIRECTED PRN PRN Reason: Keep Vein Open Last Admin: 03/13/19 18:26 Dose: 2.5 ml Temazepam (Restoril) 15 mg PO BEDTIME PRN PRN Reason: Insomnia Trimethoprim/Sulfamethoxazole (Septra Ds) 1 tab PO BID BRITTANY Stop: 03/17/19 09:01 Last Admin: 03/14/19 08:46 Dose: 1 tab Discontinued Medications Aspirin (Aspirin) 324 mg PO ONETIME ONE Stop: 03/13/19 18:25 Last Admin: 03/13/19 18:29 Dose: 324 mg Diltiazem HCl (Diltiazem) 25 mg IVPUSH ONETIME ONE Stop: 03/13/19 18:22 Last Admin: 03/13/19 18:26 Dose: 25 mg Diltiazem HCl (Diltiazem) Confirm Administered Dose 25 mg .ROUTE .STK-MED ONE Stop: 03/13/19 18:22 Last Admin: 03/13/19 18:28 Dose: Not Given Diltiazem HCl (Diltiazem) 25 mg IVPUSH ONETIME ONE Stop: 03/13/19 18:47 Last Admin: 03/13/19 18:54 Dose: 25 mg Furosemide (Lasix) 40 mg PO ONETIME ONE Stop: 03/13/19 19:40 Last Admin: 03/13/19 21:23 Dose: Not Given Furosemide (Lasix) 40 mg PO ONETIME ONE Stop: 03/14/19 09:32 Sodium Chloride (Normal Saline) 1,000 mls @ 999 mls/hr IV STAT ONE Stop: 03/13/19 19:23 Last Admin: 03/13/19 18:26 Dose: 999 mls/hr Metoprolol Tartrate (Lopressor) 50 mg PO ONETIME ONE Stop: 03/13/19 18:50 Last Admin: 03/13/19 19:00 Dose: 50 mg Metoprolol Tartrate (Lopressor) 25 mg PO Q12H [facility] Last Admin: 03/14/19 09:38 Dose: Not Given Non-Formulary Medication (Metoprolol Tartrate [Lopressor]) 10 mg PO BID [facility] Sodium Polystyrene Sulfonate (Kayexalate) 15 gm PO ONETIME ONE Stop: 03/14/19 09:31 - Exam General: Alert, Oriented, Cooperative HEENT: EOMI Neck: Supple Lungs: Clear to Auscultation, Normal Respiratory Effort Cardiovascular: Regular Rhythm, Tachycardia GI/Abdominal Exam: Non-Tender, No Organomegaly, No Mass, Other (mild gaurding ) Back Exam: Full Range of Motion Extremities: Other (+1 pitting edema lower extremitites ) Skin: Warm, Dry, Intact Psy/Mental Status: Alert, Normal Affect, Normal Mood EKG INTERPRETATION Rhythm: NSR (return to sinus rhythm this AM) - Problem List & Annotations (1) Anxiety SNOMED Code(s): 77410774 Code(s): F41.9 - ANXIETY DISORDER, UNSPECIFIED Status: Acute Current Visit: Yes (2) Medical non-compliance SNOMED Code(s): 030635892 Code(s): Z91.19 - PATIENT'S NONCOMPLIANCE W OTH MEDICAL TREATMENT AND REGIMEN Status: Acute Current Visit: Yes (3) Transaminitis SNOMED Code(s): 425937478, 982333510 Code(s): R74.0 - NONSPEC ELEV OF LEVELS OF TRANSAMNS & LACTIC ACID DEHYDRGNSE Status: Acute Current Visit: Yes (4) Macrocytic anemia SNOMED Code(s): 83427620 Code(s): D53.9 - NUTRITIONAL ANEMIA, UNSPECIFIED Status: Acute Current Visit: Yes (5) Hyperbilirubinemia SNOMED Code(s): 09984268 Code(s): E80.6 - OTHER DISORDERS OF BILIRUBIN METABOLISM Status: Acute Current Visit: Yes (6) Atrial fibrillation with rapid ventricular response SNOMED Code(s): 689352382167807 Code(s): I48.91 - UNSPECIFIED ATRIAL FIBRILLATION Status: Acute Current Visit: Yes (7) Hyperkalemia SNOMED Code(s): 07579308 Code(s): E87.5 - HYPERKALEMIA Status: Acute Current Visit: Yes - Problem List Review Problem List Initiated/Reviewed/Updated: Yes - My Orders Last 24 Hours: My Active Orders 03/13/19 19:30 Code Status [Resuscitation Status] Routine 03/13/19 19:31 Intake and Output Strict [RC] ASDIRECTED Telemetry Monitoring [Cardiac Monitoring] [RC] Q8H Vital Signs [RC] PER UNIT ROUTINE 03/13/19 19:46 Diltiazem 20 mg IVPUSH ONETIME PRN 03/13/19 20:00 Enoxaparin [Lovenox] 60 mg SUBCUT Q12H Temazepam [Restoril] 15 mg PO BEDTIME PRN 03/14/19 07:20 CULTURE URINE [RM] Routine 03/14/19 08:00 Metoprolol Tartrate [Lopressor] 12.5 mg PO Q12H 03/14/19 09:00 Sulfamethoxazole/Trimethoprim [Septra DS] 1 tab PO BID 03/14/19 09:30 HEPATITIS PANEL (4) [REF] Urgent 03/14/19 09:31 LIPID PANEL [CHEM] Urgent 03/14/19 19:43 Abdomen Ltd [US] Routine Echo Comp wo Cont [US] Stat 03/14/19 Breakfast Heart Healthy Diet [DIET] 03/15/19 05:11 CBC WITH AUTO DIFF [HEME] AM COMPREHENSIVE METABOLIC PN,CMP [CHEM] AM 03/16/19 05:11 CBC WITH AUTO DIFF [HEME] AM COMPREHENSIVE METABOLIC PN,CMP [CHEM] AM 03/17/19 05:11 COMPREHENSIVE METABOLIC PN,CMP [CHEM] AM - Plan Plan:: Assessment: 1. A. fib with RVR secondary to medical non-compliance : currently rate controlled 2. hyperkalemia 3. Asymptomatic urinary tract infection 4. Leukocytosis 5. Elevated BNP 6. Transaminitis 7. Elevated bilirubin 8. Macrocytic anemia 9. Past medical history: A. fib, anxiety, tobacco abuse Admit patient to observation. Vitals per routine. Intake outtake :strict . Full code. Diet: Heart healthy. DVT prophylaxis: Lovenox 1 mg/kg Q12 hours 1. A. fib with RVR: Telemetry. Rate control with metoprolol 12 mg BID; We'll consult cardiology for further recommendations; when necessary dose of IV Cardizem 20 mg for rate greater than 150. 2. Elevated BNP: 40 of Lasix repeat today Echocardiogram ordered. Chest x-ray: Mild cardiomegaly; no acute infiltrates; awaiting official read 3. hyperkalemia: Kayexalate 1 dose given. Repeat BMP in afternoon. Continue to monitor on telemetry. 4. Asymptomatic urinary tract infection:Bactrim double strength twice a day 3 days. Awaiting culture results for sensitivities. 3. Tobacco abuse: Nicotine patch 14. 4. Transaminitis: right upper quadrant ultrasound. Repeat LFTs. hepatitis panel. Lipid panel ordered. 5. Elevated bilirubin: Continue to monitor.possibly secondary to alcohol use; lipid panel/hepatitis panel. 6. Macrocytic anemia: elevated B12; possibly related to chronic liver insult <Sammy Cobian - Last Filed: 03/14/19 16:34> - General Info Admission Dx/Problem (Free Text): I have seen and examined the patient independently of Money Position Officer, Dr. Mavis MD. I have reviewed and agree with the plan of care as outlined for this patient by him. I have discussed the case with him. Please see orders. - Patient Data Vitals - Most Recent: Last Vital Signs Temp 37.3 C 03/14/19 16:00 Pulse 90 03/14/19 16:00 Resp 18 03/14/19 16:00 BP 112/54 L 03/14/19 16:00 Pulse Ox 93 L 03/14/19 16:00 I&O - Last 24 Hours: Intake & Output 03/14/19 03/14/19 03/14/19 06:59 14:59 22:59 Intake Total 400 1143 Output Total 200 650 Balance 200 493 Lab Results Last 24 Hours: Laboratory Results - last 24 hr 03/13/19 03/13/19 03/13/19 Range/Units 18:16 18:16 18:16 WBC 8.01 (4.0-11.0) K/uL RBC 3.98 L (4.30-5.90) M/uL Hgb 15.2 (12.0-16.0) g/dL Hct 45.9 (36.0-46.0) % MCV 115.3 H (80.0-98.0) fL MCH 38.2 H (27.0-32.0) pg MCHC 33.1 (31.0-37.0) g/dL RDW Std Deviation 64.5 H (28.0-62.0) fl RDW Coeff of Papo 15 (11.0-15.0) % Plt Count 152 (150-400) K/uL MPV 13.00 H (7.40-12.00) fL Neut % (Auto) 68.1 (48.0-80.0) % Lymph % (Auto) 21.8 (16.0-40.0) % [place] % (Auto) 9.0 (0.0-15.0) % Eos % (Auto) 0.7 (0.0-7.0) % Baso % (Auto) 0.4 (0.0-1.5) % Neut # (Auto) 5.5 (1.4-5.7) K/uL Lymph # (Auto) 1.8 (0.6-2.4) K/uL [place] # (Auto) 0.7 (0.0-0.8) K/uL Eos # (Auto) 0.1 (0.0-0.7) K/uL Baso # (Auto) 0.0 (0.0-0.1) K/uL Nucleated RBC % 0.0 /100WBC Nucleated RBCs # 0 K/uL INR 1.53 Sodium 139 (136-145) mmol/L Potassium 3.9 (3.5-5.1) mmol/L Chloride 103 (98-107) mmol/L Carbon Dioxide 22.6 (21.0-32.0) mmol/L BUN 15 (7.0-18.0) mg/dL Creatinine 1.0 (0.6-1.0) mg/dL Est Cr Clr Drug Dosing 54.89 mL/min Estimated GFR (MDRD) 57.6 ml/min Glucose 143 H (74-106) mg/dL Calcium 9.2 (8.5-10.1) mg/dL Total Bilirubin 1.6 H (0.2-1.0) mg/dL AST 103 H (15-37) IU/L ALT 83 H (14-63) IU/L Alkaline Phosphatase 181 H (46-116) U/L Troponin I < 0.050 (0.000-0.056) ng/mL B-Natriuretic Peptide (<100) PG/ML Total Protein 6.3 L (6.4-8.2) g/dL Albumin 3.2 L (3.4-5.0) g/dL Globulin 3.1 (2.6-4.0) g/dL Albumin/Globulin Ratio 1.0 (0.9-1.6) Triglycerides (0-200) mg/dL Cholesterol (50-200) mg/dL LDL Cholesterol, Calc (60-180) mg/dL VLDL Cholesterol (5-55) mg/dL HDL Cholesterol (40-60) mg/dL Cholesterol/HDL Ratio (3.3-6.0) Vitamin B12 (193-986) pg/mL Folate (8.60-58.90) ng/mL Urine Color Urine Appearance Urine pH (5.0-8.0) Ur Specific [place] (1.001-1.035) Urine Protein (NEGATIVE) mg/dL Urine Glucose (UA) (NEGATIVE) mg/dL Urine Ketones (NEGATIVE) mg/dL Urine Occult Blood (NEGATIVE) Urine Nitrite (NEGATIVE) Urine Bilirubin (NEGATIVE) Urine Ictotest Urine Urobilinogen (<2.0) EU/dL Ur Leukocyte Esterase (NEGATIVE) Urine RBC (0-2/HPF) Urine WBC (0-5/HPF) Ur Epithelial Cells (NONE-FEW) Urine Bacteria (NEGATIVE) Hyaline Casts (0-2/LPF) Urine Mucus (NONE-MOD) Urine Opiates Screen (NEGATIVE) Ur Oxycodone Screen (NEGATIVE) Urine Methadone Screen (NEGATIVE) Ur Barbiturates Screen (NEGATIVE) Ur Phencyclidine Scrn (NEGATIVE) Ur Amphetamine Screen (NEGATIVE) U Methamphetamines Scrn (NEGATIVE) U Benzodiazepines Scrn (NEGATIVE) U Cocaine Metab Screen (NEGATIVE) U Marijuana (THC) Screen (NEGATIVE) Ethyl Alcohol mg/dL 03/13/19 03/13/19 03/13/19 Range/Units 18:16 19:14 19:14 WBC (4.0-11.0) K/uL RBC (4.30-5.90) M/uL Hgb (12.0-16.0) g/dL Hct (36.0-46.0) % MCV (80.0-98.0) fL MCH (27.0-32.0) pg MCHC (31.0-37.0) g/dL RDW Std Deviation (28.0-62.0) fl RDW Coeff of Papo (11.0-15.0) % Plt Count (150-400) K/uL MPV (7.40-12.00) fL Neut % (Auto) (48.0-80.0) % Lymph % (Auto) (16.0-40.0) % [place] % (Auto) (0.0-15.0) % Eos % (Auto) (0.0-7.0) % Baso % (Auto) (0.0-1.5) % Neut # (Auto) (1.4-5.7) K/uL Lymph # (Auto) (0.6-2.4) K/uL [place] # (Auto) (0.0-0.8) K/uL Eos # (Auto) (0.0-0.7) K/uL Baso # (Auto) (0.0-0.1) K/uL Nucleated RBC % /100WBC Nucleated RBCs # K/uL INR Sodium (136-145) mmol/L Potassium (3.5-5.1) mmol/L Chloride (98-107) mmol/L Carbon Dioxide (21.0-32.0) mmol/L BUN (7.0-18.0) mg/dL Creatinine (0.6-1.0) mg/dL Est Cr Clr Drug Dosing mL/min Estimated GFR (MDRD) ml/min Glucose (74-106) mg/dL Calcium (8.5-10.1) mg/dL Total Bilirubin (0.2-1.0) mg/dL AST (15-37) IU/L ALT (14-63) IU/L Alkaline Phosphatase (46-116) U/L Troponin I (0.000-0.056) ng/mL B-Natriuretic Peptide 1103 H (<100) PG/ML Total Protein (6.4-8.2) g/dL Albumin (3.4-5.0) g/dL Globulin (2.6-4.0) g/dL Albumin/Globulin Ratio (0.9-1.6) Triglycerides (0-200) mg/dL Cholesterol (50-200) mg/dL LDL Cholesterol, Calc (60-180) mg/dL VLDL Cholesterol (5-55) mg/dL HDL Cholesterol (40-60) mg/dL Cholesterol/HDL Ratio (3.3-6.0) Vitamin B12 (193-986) pg/mL Folate (8.60-58.90) ng/mL Urine Color DARK YELLOW Urine Appearance SLT CLOUDY Urine pH 5.5 (5.0-8.0) Ur Specific [place] >= 1.030 (1.001-1.035) Urine Protein 100 H (NEGATIVE) mg/dL Urine Glucose (UA) NEGATIVE (NEGATIVE) mg/dL Urine Ketones NEGATIVE (NEGATIVE) mg/dL Urine Occult Blood TRACE-INTACT H (NEGATIVE) Urine Nitrite POSITIVE H (NEGATIVE) Urine Bilirubin MODERATE H (NEGATIVE) Urine Ictotest POSITIVE Urine Urobilinogen 2.0 H (<2.0) EU/dL Ur Leukocyte Esterase SMALL H (NEGATIVE) Urine RBC 1-3 (0-2/HPF) Urine WBC 4-7 (0-5/HPF) Ur Epithelial Cells FEW (NONE-FEW) Urine Bacteria 3+ H (NEGATIVE) Hyaline Casts 1-3 (0-2/LPF) Urine Mucus MODERATE (NONE-MOD) Urine Opiates Screen NEGATIVE (NEGATIVE) Ur Oxycodone Screen NEGATIVE (NEGATIVE) Urine Methadone Screen NEGATIVE (NEGATIVE) Ur Barbiturates Screen NEGATIVE (NEGATIVE) Ur Phencyclidine Scrn NEGATIVE (NEGATIVE) Ur Amphetamine Screen NEGATIVE (NEGATIVE) U Methamphetamines Scrn POSITIVE (NEGATIVE) U Benzodiazepines Scrn NEGATIVE (NEGATIVE) U Cocaine Metab Screen NEGATIVE (NEGATIVE) U Marijuana (THC) Screen NEGATIVE (NEGATIVE) Ethyl Alcohol mg/dL 03/14/19 03/14/19 03/14/19 Range/Units 06:17 06:17 06:17 WBC 11.57 H (4.0-11.0) K/uL RBC 3.79 L (4.30-5.90) M/uL Hgb 14.6 (12.0-16.0) g/dL Hct 44.3 (36.0-46.0) % MCV 116.9 H (80.0-98.0) fL MCH 38.5 H (27.0-32.0) pg MCHC 33.0 (31.0-37.0) g/dL RDW Std Deviation 64.7 H (28.0-62.0) fl RDW Coeff of Papo 15 (11.0-15.0) % Plt Count 143 L (150-400) K/uL MPV 13.20 H (7.40-12.00) fL Neut % (Auto) 76.1 (48.0-80.0) % Lymph % (Auto) 11.9 L (16.0-40.0) % [place] % (Auto) 11.7 (0.0-15.0) % Eos % (Auto) 0.1 (0.0-7.0) % Baso % (Auto) 0.2 (0.0-1.5) % Neut # (Auto) 8.8 H (1.4-5.7) K/uL Lymph # (Auto) 1.4 (0.6-2.4) K/uL [place] # (Auto) 1.4 H (0.0-0.8) K/uL Eos # (Auto) 0.0 (0.0-0.7) K/uL Baso # (Auto) 0.0 (0.0-0.1) K/uL Nucleated RBC % 0.6 /100WBC Nucleated RBCs # 0 K/uL INR Sodium 136 (136-145) mmol/L Potassium 6.2 H (3.5-5.1) mmol/L Chloride 104 (98-107) mmol/L Carbon Dioxide 20.3 L (21.0-32.0) mmol/L BUN 19 H (7.0-18.0) mg/dL Creatinine 1.4 H (0.6-1.0) mg/dL Est Cr Clr Drug Dosing 39.21 mL/min Estimated GFR (MDRD) 39.0 ml/min Glucose 107 H (74-106) mg/dL Calcium 8.4 L (8.5-10.1) mg/dL Total Bilirubin 2.7 H (0.2-1.0) mg/dL AST 1099 H (15-37) IU/L ALT 473 H (14-63) IU/L Alkaline Phosphatase 155 H (46-116) U/L Troponin I (0.000-0.056) ng/mL B-Natriuretic Peptide (<100) PG/ML Total Protein 5.5 L (6.4-8.2) g/dL Albumin 2.8 L (3.4-5.0) g/dL Globulin 2.7 (2.6-4.0) g/dL Albumin/Globulin Ratio 1.0 (0.9-1.6) Triglycerides (0-200) mg/dL Cholesterol (50-200) mg/dL LDL Cholesterol, Calc (60-180) mg/dL VLDL Cholesterol (5-55) mg/dL HDL Cholesterol (40-60) mg/dL Cholesterol/HDL Ratio (3.3-6.0) Vitamin B12 1132 H (193-986) pg/mL Folate 14.30 (8.60-58.90) ng/mL Urine Color Urine Appearance Urine pH (5.0-8.0) Ur Specific [place] (1.001-1.035) Urine Protein (NEGATIVE) mg/dL Urine Glucose (UA) (NEGATIVE) mg/dL Urine Ketones (NEGATIVE) mg/dL Urine Occult Blood (NEGATIVE) Urine Nitrite (NEGATIVE) Urine Bilirubin (NEGATIVE) Urine Ictotest Urine Urobilinogen (<2.0) EU/dL Ur Leukocyte Esterase (NEGATIVE) Urine RBC (0-2/HPF) Urine WBC (0-5/HPF) Ur Epithelial Cells (NONE-FEW) Urine Bacteria (NEGATIVE) Hyaline Casts (0-2/LPF) Urine Mucus (NONE-MOD) Urine Opiates Screen (NEGATIVE) Ur Oxycodone Screen (NEGATIVE) Urine Methadone Screen (NEGATIVE) Ur Barbiturates Screen (NEGATIVE) Ur Phencyclidine Scrn (NEGATIVE) Ur Amphetamine Screen (NEGATIVE) U Methamphetamines Scrn (NEGATIVE) U Benzodiazepines Scrn (NEGATIVE) U Cocaine Metab Screen (NEGATIVE) U Marijuana (THC) Screen (NEGATIVE) Ethyl Alcohol mg/dL 03/14/19 03/14/19 Range/Units 06:17 06:17 WBC (4.0-11.0) K/uL RBC (4.30-5.90) M/uL Hgb (12.0-16.0) g/dL Hct (36.0-46.0) % MCV (80.0-98.0) fL MCH (27.0-32.0) pg MCHC (31.0-37.0) g/dL RDW Std Deviation (28.0-62.0) fl RDW Coeff of Papo (11.0-15.0) % Plt Count (150-400) K/uL MPV (7.40-12.00) fL Neut % (Auto) (48.0-80.0) % Lymph % (Auto) (16.0-40.0) % [place] % (Auto) (0.0-15.0) % Eos % (Auto) (0.0-7.0) % Baso % (Auto) (0.0-1.5) % Neut # (Auto) (1.4-5.7) K/uL Lymph # (Auto) (0.6-2.4) K/uL [place] # (Auto) (0.0-0.8) K/uL Eos # (Auto) (0.0-0.7) K/uL Baso # (Auto) (0.0-0.1) K/uL Nucleated RBC % /100WBC Nucleated RBCs # K/uL INR Sodium (136-145) mmol/L Potassium (3.5-5.1) mmol/L Chloride (98-107) mmol/L Carbon Dioxide (21.0-32.0) mmol/L BUN (7.0-18.0) mg/dL Creatinine (0.6-1.0) mg/dL Est Cr Clr Drug Dosing mL/min Estimated GFR (MDRD) ml/min Glucose (74-106) mg/dL Calcium (8.5-10.1) mg/dL Total Bilirubin (0.2-1.0) mg/dL AST (15-37) IU/L ALT (14-63) IU/L Alkaline Phosphatase (46-116) U/L Troponin I (0.000-0.056) ng/mL B-Natriuretic Peptide (<100) PG/ML Total Protein (6.4-8.2) g/dL Albumin (3.4-5.0) g/dL Globulin (2.6-4.0) g/dL Albumin/Globulin Ratio (0.9-1.6) Triglycerides 57 (0-200) mg/dL Cholesterol 151 (50-200) mg/dL LDL Cholesterol, Calc 122 (60-180) mg/dL VLDL Cholesterol 11 (5-55) mg/dL HDL Cholesterol 18 L (40-60) mg/dL Cholesterol/HDL Ratio 8.4 H (3.3-6.0) Vitamin B12 (193-986) pg/mL Folate (8.60-58.90) ng/mL Urine Color Urine Appearance Urine pH (5.0-8.0) Ur Specific [place] (1.001-1.035) Urine Protein (NEGATIVE) mg/dL Urine Glucose (UA) (NEGATIVE) mg/dL Urine Ketones (NEGATIVE) mg/dL Urine Occult Blood (NEGATIVE) Urine Nitrite (NEGATIVE) Urine Bilirubin (NEGATIVE) Urine Ictotest Urine Urobilinogen (<2.0) EU/dL Ur Leukocyte Esterase (NEGATIVE) Urine RBC (0-2/HPF) Urine WBC (0-5/HPF) Ur Epithelial Cells (NONE-FEW) Urine Bacteria (NEGATIVE) Hyaline Casts (0-2/LPF) Urine Mucus (NONE-MOD) Urine Opiates Screen (NEGATIVE) Ur Oxycodone Screen (NEGATIVE) Urine Methadone Screen (NEGATIVE) Ur Barbiturates Screen (NEGATIVE) Ur Phencyclidine Scrn (NEGATIVE) Ur Amphetamine Screen (NEGATIVE) U Methamphetamines Scrn (NEGATIVE) U Benzodiazepines Scrn (NEGATIVE) U Cocaine Metab Screen (NEGATIVE) U Marijuana (THC) Screen (NEGATIVE) Ethyl Alcohol 3 mg/dL Med Orders - Current: Current Medications Diltiazem HCl (Diltiazem) 20 mg IVPUSH ONETIME PRN PRN Reason: Tachycardia Enoxaparin Sodium (Lovenox) 60 mg SUBCUT Q12H [facility] Last Admin: 03/14/19 08:50 Dose: 60 mg Sodium Chloride (Normal Saline) 1,000 mls @ 150 mls/hr IV ASDIRECTED [facility] Last Admin: 03/14/19 13:33 Dose: 150 mls/hr Sodium Chloride (Normal Saline) 500 mls @ 999 mls/hr IV .BOLUS [facility] Last Admin: 03/13/19 22:11 Dose: 999 mls/hr Metoprolol Tartrate (Lopressor) 12.5 mg PO Q12H [facility] Last Admin: 03/14/19 08:45 Dose: 12.5 mg Ondansetron HCl (Zofran) 4 mg IVPUSH Q6H PRN PRN Reason: Nausea/Vomiting Last Admin: 03/13/19 22:10 Dose: 4 mg Sodium Chloride (Saline Flush) 10 ml FLUSH ASDIRECTED PRN PRN Reason: Keep Vein Open Last Admin: 03/13/19 18:26 Dose: 10 ml Sodium Chloride (Saline Flush) 2.5 ml FLUSH ASDIRECTED PRN PRN Reason: Keep Vein Open Last Admin: 03/13/19 18:26 Dose: 2.5 ml Temazepam (Restoril) 15 mg PO BEDTIME PRN PRN Reason: Insomnia Trimethoprim/Sulfamethoxazole (Septra Ds) 1 tab PO BID BRITTANY Stop: 03/17/19 09:01 Last Admin: 03/14/19 08:46 Dose: 1 tab Discontinued Medications Aspirin (Aspirin) 324 mg PO ONETIME ONE Stop: 03/13/19 18:25 Last Admin: 03/13/19 18:29 Dose: 324 mg Diltiazem HCl (Diltiazem) 25 mg IVPUSH ONETIME ONE Stop: 03/13/19 18:22 Last Admin: 03/13/19 18:26 Dose: 25 mg Diltiazem HCl (Diltiazem) Confirm Administered Dose 25 mg .ROUTE .STK-MED ONE Stop: 03/13/19 18:22 Last Admin: 03/13/19 18:28 Dose: Not Given Diltiazem HCl (Diltiazem) 25 mg IVPUSH ONETIME ONE Stop: 03/13/19 18:47 Last Admin: 03/13/19 18:54 Dose: 25 mg Furosemide (Lasix) 40 mg PO ONETIME ONE Stop: 03/13/19 19:40 Last Admin: 03/13/19 21:23 Dose: Not Given Furosemide (Lasix) 40 mg PO ONETIME ONE Stop: 03/14/19 09:32 Last Admin: 03/14/19 10:05 Dose: 40 mg Sodium Chloride (Normal Saline) 1,000 mls @ 999 mls/hr IV STAT ONE Stop: 03/13/19 19:23 Last Admin: 03/13/19 18:26 Dose: 999 mls/hr Metoprolol Tartrate (Lopressor) 50 mg PO ONETIME ONE Stop: 03/13/19 18:50 Last Admin: 03/13/19 19:00 Dose: 50 mg Metoprolol Tartrate (Lopressor) 25 mg PO Q12H [facility] Last Admin: 03/14/19 09:38 Dose: Not Given Non-Formulary Medication (Metoprolol Tartrate [Lopressor]) 10 mg PO BID [facility] Sodium Polystyrene Sulfonate (Kayexalate) 15 gm PO ONETIME ONE Stop: 03/14/19 09:31 Last Admin: 03/14/19 10:06 Dose: 15 gm - My Orders Last 24 Hours: My Active Orders 03/13/19 21:51 Ondansetron [Zofran] 4 mg IVPUSH Q6H PRN 03/13/19 22:00 Sodium Chloride 0.9% [Normal Saline] 500 ml IV .BOLUS
--- NOTE | 2019-03-14 12:40 | US ---
Limited abdominal ultrasound: Multiple real-time images of the right upper abdomen were obtained. Comparison: No previous abdominal imaging. Findings: Liver shows no focal abnormality. Pancreas also shows no discrete abnormality. Right kidney shows no hydronephrosis or mass. Right kidney has a length of 11.4 cm. Gallbladder wall shows thickening. Pericholecystic edema is noted. No shadowing gallstones or biliary duct dilatation is seen. Right sided pleural effusion is noted. Impression: 1. Gallbladder wall thickening with pericholecystic edema. No gallstones are noted. Findings raise the possibility of acalculous cholecystitis. 2. Right-sided pleural effusion. Diagnostic code #3 MTDD
[2019-03-14] MEDS: Sodium Chloride 0.9% 1,000 ML IV SCH (13:33)
--- NOTE | 2019-03-14 14:59 | PCM.CONS ---
H&P History of Present Illness - General Date of Service: 03/14/19 Admit Problem/Dx: Admission Diagnosis/Problem Admission Diagnosis/Problem Atrial fibrillation with rapid ventricular response I have examined the patient independently of medical device sales representative, Dr. Mavis MD. I have discussed the case with him. I have reviewed and agree with the plan of care as outlined for the patient by him. Please see orders. Also with elevated AST/ALT. US liver ordered. Source of Information: Patient History Limitations: Reports: No Limitations - History of Present Illness Initial Comments - Free Text/Narative: 53 y/o female admitted yesterday with abdominal bloating. This had gotten progressively worse. She had a similar episode in January but not as bad as this one. No fever chills. Mild nausea w/o vomiting. No change in bowel habits or stool color. No bleeding. No unexplained weight loss. Duration of Symptoms: Reports: Day(s):, Chronic, Constant, Getting Worse Location: Reports: Abdomen Quality: Reports: Pressure Severity: Moderate Improves with: Reports: Rest Worsens with: Reports: None Context: Reports: Sick Contact Associated Symptoms: Reports: Loss of Appetite, Malaise, Shortness of Breath. Denies: Confusion, Chest Pain, Cough, Syncope abdomen Pain Score (Numeric/FACES): 8 - Related Data Allergies/Adverse Reactions: Allergies Allergy/AdvReac Type Severity Reaction Status Date / Time No Known Allergies Allergy Verified 03/13/19 20:55 Home Medications: Home Meds Metoprolol Tartrate [Lopressor] 10 mg PO BID 03/13/19 [History] Past Medical History HEENT History: Reports: None Cardiovascular History: Reports: Afib, Hypertension Respiratory History: Reports: None Gastrointestinal History: Reports: None Genitourinary History: Reports: Other (See Below) Other Genitourinary History: hx of kidney infections CRIBBER History: Reports: Musculoskeletal History: Reports: None Neurological History: Reports: None Psychiatric History: Reports: None Endocrine/Metabolic History: Reports: None Hematologic History: Reports: None Immunologic History: Reports: None Oncologic (Cancer) History: Reports: None Dermatologic History: Reports: None - Infectious Disease History Infectious Disease History: Reports: Chicken Pox - Past Surgical History Head Surgeries/Procedures: Reports: None HEENT Surgical History: Reports: None Cardiovascular Surgical History: Reports: None Respiratory Surgical History: Reports: None GI Surgical History: Reports: None Female Surgical History: Reports: Section, Other (See Below) Other Female Surgeries/Procedures: partial tubal ligation Endocrine Surgical History: Reports: None Neurological Surgical History: Reports: None Musculoskeletal Surgical History: Reports: None Oncologic Surgical History: Reports: None Dermatological Surgical History: Reports: None Social & Family History - Family History Family Medical History: Noncontributory - Tobacco Use Smoking Status *Q: Current Every Day Smoker Years of Tobacco use: 30 Packs/Tins Daily: 1.5 - Caffeine Use Caffeine Use: Reports: Coffee - Recreational Drug Use Recreational Drug Use: No H&P Review of Systems - Review of Systems: Review Of Systems: See Below General: Reports: Malaise. Denies: Fever, Chills, Weakness, Fatigue, Night Sweats, Diaphoresis HEENT: Reports: No Symptoms Pulmonary: Reports: Shortness of Breath. Denies: Pleuritic Chest Pain, Cough, Sputum, Hemoptysis Cardiovascular: Reports: Chest Pain, Other (atrial fibrillation w/ RVR). Denies : Palpitations, Dyspnea on Exertion, Orthopnea, PND, Edema, Lightheadedness, Syncope Gastrointestinal: Reports: Abdominal Pain, Anorexia, Decreased Appetite, Distension, Flatus, Nausea. Denies: Black Stool, Bloody Stool, Constipation, Diarrhea, Difficulty Swallowing, Hematemesis, Hematochezia, Melena, Vomiting Genitourinary: Denies: Dysuria, Frequency, Burning, Pain, Urgency, Incontinence , Hematuria, Retention Musculoskeletal: Reports: No Symptoms Skin: Denies: Cyanosis, Jaundice, Mottled, Pallor, Diaphoresis, Dryness Psychiatric: Reports: Anxiety. Denies: Confusion, Depression, Mood Lability, Agitation Neurological: Denies: Confusion, Dizziness, Headache Hematologic/Lymphatic: Denies: Anemia, Easy Bleeding, Easy Bruising Immunologic: Reports: No Symptoms Exam - Exam Exam: See Below - Vital Signs Vital Signs: Last Vital Signs Temp 98.8 F 03/14/19 12:00 Pulse 91 03/14/19 12:00 Resp 18 03/14/19 12:00 BP 118/54 L 03/14/19 12:00 Pulse Ox 94 L 03/14/19 12:00 Weight: 146 lb 3.2 oz - Exam General: Alert, Oriented, Cooperative, Mild Distress HEENT: Conjunctiva Clear, EACs Clear, EOMI, Pupils Equal, Pupils Reactive. No: Scleral Icterus Neck: Supple, Trachea Midline Lungs: Clear to Auscultation, Normal Respiratory Effort. No: Decreased Breath Sounds, Crackles, Rales, Wheezing Cardiovascular: Irregular Rhythm. No: Bradycardia, Tachycardia, Systolic Murmur , Diastolic Murmur, Rubs GI/Abdominal Exam: Normal Bowel Sounds, Soft, Non-Tender, Distended, Hepatomegaly. No: Guarding, Rigid, Rebound, Tender, Mass, Splenomegaly (Female) Exam: Deferred Rectal (Female) Exam: Deferred Back Exam: Normal Inspection, Full Range of Motion Extremities: Normal Inspection, Normal Range of Motion, Non-Tender, No Pedal Edema, Normal Capillary Refill Peripheral Pulses: 4+: Posterior Tibial (L), Posterior Tibial (R), Dorsalis Pedis (L), Dorsalis Pedis (R) Skin: Warm, Dry, Intact Neurological: Cranial Nerves Intact Neuro Extensive - Mental Status: Alert, Oriented x3, Normal Mood/Affect, Normal Cognition, Memory Intact Psychiatric: Alert, Normal Affect, Normal Mood - Patient Data Lab Results Last 24 hrs: Laboratory Results - last 24 hr 03/13/19 03/13/19 03/13/19 Range/Units 18:16 18:16 18:16 WBC 8.01 (4.0-11.0) K/uL RBC 3.98 L (4.30-5.90) M/uL Hgb 15.2 (12.0-16.0) g/dL Hct 45.9 (36.0-46.0) % MCV 115.3 H (80.0-98.0) fL MCH 38.2 H (27.0-32.0) pg MCHC 33.1 (31.0-37.0) g/dL RDW Std Deviation 64.5 H (28.0-62.0) fl RDW Coeff of Papo 15 (11.0-15.0) % Plt Count 152 (150-400) K/uL MPV 13.00 H (7.40-12.00) fL Neut % (Auto) 68.1 (48.0-80.0) % Lymph % (Auto) 21.8 (16.0-40.0) % Morrison % (Auto) 9.0 (0.0-15.0) % Eos % (Auto) 0.7 (0.0-7.0) % Baso % (Auto) 0.4 (0.0-1.5) % Neut # (Auto) 5.5 (1.4-5.7) K/uL Lymph # (Auto) 1.8 (0.6-2.4) K/uL Morrison # (Auto) 0.7 (0.0-0.8) K/uL Eos # (Auto) 0.1 (0.0-0.7) K/uL Baso # (Auto) 0.0 (0.0-0.1) K/uL Nucleated RBC % 0.0 /100WBC Nucleated RBCs # 0 K/uL INR 1.53 Sodium 139 (136-145) mmol/L Potassium 3.9 (3.5-5.1) mmol/L Chloride 103 (98-107) mmol/L Carbon Dioxide 22.6 (21.0-32.0) mmol/L BUN 15 (7.0-18.0) mg/dL Creatinine 1.0 (0.6-1.0) mg/dL Est Cr Clr Drug Dosing 54.89 mL/min Estimated GFR (MDRD) 57.6 ml/min Glucose 143 H (74-106) mg/dL Calcium 9.2 (8.5-10.1) mg/dL Total Bilirubin 1.6 H (0.2-1.0) mg/dL AST 103 H (15-37) IU/L ALT 83 H (14-63) IU/L Alkaline Phosphatase 181 H (46-116) U/L Troponin I < 0.050 (0.000-0.056) ng/mL B-Natriuretic Peptide (<100) PG/ML Total Protein 6.3 L (6.4-8.2) g/dL Albumin 3.2 L (3.4-5.0) g/dL Globulin 3.1 (2.6-4.0) g/dL Albumin/Globulin Ratio 1.0 (0.9-1.6) Triglycerides (0-200) mg/dL Cholesterol (50-200) mg/dL LDL Cholesterol, Calc (60-180) mg/dL VLDL Cholesterol (5-55) mg/dL HDL Cholesterol (40-60) mg/dL Cholesterol/HDL Ratio (3.3-6.0) Vitamin B12 (193-986) pg/mL Folate (8.60-58.90) ng/mL Urine Color Urine Appearance Urine pH (5.0-8.0) Ur Specific Rillito (1.001-1.035) Urine Protein (NEGATIVE) mg/dL Urine Glucose (UA) (NEGATIVE) mg/dL Urine Ketones (NEGATIVE) mg/dL Urine Occult Blood (NEGATIVE) Urine Nitrite (NEGATIVE) Urine Bilirubin (NEGATIVE) Urine Ictotest Urine Urobilinogen (<2.0) EU/dL Ur Leukocyte Esterase (NEGATIVE) Urine RBC (0-2/HPF) Urine WBC (0-5/HPF) Ur Epithelial Cells (NONE-FEW) Urine Bacteria (NEGATIVE) Hyaline Casts (0-2/LPF) Urine Mucus (NONE-MOD) 03/13/19 03/13/19 03/14/19 Range/Units 18:16 19:14 06:17 WBC 11.57 H (4.0-11.0) K/uL RBC 3.79 L (4.30-5.90) M/uL Hgb 14.6 (12.0-16.0) g/dL Hct 44.3 (36.0-46.0) % MCV 116.9 H (80.0-98.0) fL MCH 38.5 H (27.0-32.0) pg MCHC 33.0 (31.0-37.0) g/dL RDW Std Deviation 64.7 H (28.0-62.0) fl RDW Coeff of Papo 15 (11.0-15.0) % Plt Count 143 L (150-400) K/uL MPV 13.20 H (7.40-12.00) fL Neut % (Auto) 76.1 (48.0-80.0) % Lymph % (Auto) 11.9 L (16.0-40.0) % Morrison % (Auto) 11.7 (0.0-15.0) % Eos % (Auto) 0.1 (0.0-7.0) % Baso % (Auto) 0.2 (0.0-1.5) % Neut # (Auto) 8.8 H (1.4-5.7) K/uL Lymph # (Auto) 1.4 (0.6-2.4) K/uL Morrison # (Auto) 1.4 H (0.0-0.8) K/uL Eos # (Auto) 0.0 (0.0-0.7) K/uL Baso # (Auto) 0.0 (0.0-0.1) K/uL Nucleated RBC % 0.6 /100WBC Nucleated RBCs # 0 K/uL INR Sodium (136-145) mmol/L Potassium (3.5-5.1) mmol/L Chloride (98-107) mmol/L Carbon Dioxide (21.0-32.0) mmol/L BUN (7.0-18.0) mg/dL Creatinine (0.6-1.0) mg/dL Est Cr Clr Drug Dosing mL/min Estimated GFR (MDRD) ml/min Glucose (74-106) mg/dL Calcium (8.5-10.1) mg/dL Total Bilirubin (0.2-1.0) mg/dL AST (15-37) IU/L ALT (14-63) IU/L Alkaline Phosphatase (46-116) U/L Troponin I (0.000-0.056) ng/mL B-Natriuretic Peptide 1103 H (<100) PG/ML Total Protein (6.4-8.2) g/dL Albumin (3.4-5.0) g/dL Globulin (2.6-4.0) g/dL Albumin/Globulin Ratio (0.9-1.6) Triglycerides (0-200) mg/dL Cholesterol (50-200) mg/dL LDL Cholesterol, Calc (60-180) mg/dL VLDL Cholesterol (5-55) mg/dL HDL Cholesterol (40-60) mg/dL Cholesterol/HDL Ratio (3.3-6.0) Vitamin B12 (193-986) pg/mL Folate (8.60-58.90) ng/mL Urine Color DARK YELLOW Urine Appearance SLT CLOUDY Urine pH 5.5 (5.0-8.0) Ur Specific Rillito >= 1.030 (1.001-1.035) Urine Protein 100 H (NEGATIVE) mg/dL Urine Glucose (UA) NEGATIVE (NEGATIVE) mg/dL Urine Ketones NEGATIVE (NEGATIVE) mg/dL Urine Occult Blood TRACE-INTACT H (NEGATIVE) Urine Nitrite POSITIVE H (NEGATIVE) Urine Bilirubin MODERATE H (NEGATIVE) Urine Ictotest POSITIVE Urine Urobilinogen 2.0 H (<2.0) EU/dL Ur Leukocyte Esterase SMALL H (NEGATIVE) Urine RBC 1-3 (0-2/HPF) Urine WBC 4-7 (0-5/HPF) Ur Epithelial Cells FEW (NONE-FEW) Urine Bacteria 3+ H (NEGATIVE) Hyaline Casts 1-3 (0-2/LPF) Urine Mucus MODERATE (NONE-MOD) 03/14/19 03/14/19 03/14/19 Range/Units 06:17 06:17 06:17 WBC (4.0-11.0) K/uL RBC (4.30-5.90) M/uL Hgb (12.0-16.0) g/dL Hct (36.0-46.0) % MCV (80.0-98.0) fL MCH (27.0-32.0) pg MCHC (31.0-37.0) g/dL RDW Std Deviation (28.0-62.0) fl RDW Coeff of Papo (11.0-15.0) % Plt Count (150-400) K/uL MPV (7.40-12.00) fL Neut % (Auto) (48.0-80.0) % Lymph % (Auto) (16.0-40.0) % Morrison % (Auto) (0.0-15.0) % Eos % (Auto) (0.0-7.0) % Baso % (Auto) (0.0-1.5) % Neut # (Auto) (1.4-5.7) K/uL Lymph # (Auto) (0.6-2.4) K/uL Morrison # (Auto) (0.0-0.8) K/uL Eos # (Auto) (0.0-0.7) K/uL Baso # (Auto) (0.0-0.1) K/uL Nucleated RBC % /100WBC Nucleated RBCs # K/uL INR Sodium 136 (136-145) mmol/L Potassium 6.2 H (3.5-5.1) mmol/L Chloride 104 (98-107) mmol/L Carbon Dioxide 20.3 L (21.0-32.0) mmol/L BUN 19 H (7.0-18.0) mg/dL Creatinine 1.4 H (0.6-1.0) mg/dL Est Cr Clr Drug Dosing 39.21 mL/min Estimated GFR (MDRD) 39.0 ml/min Glucose 107 H (74-106) mg/dL Calcium 8.4 L (8.5-10.1) mg/dL Total Bilirubin 2.7 H (0.2-1.0) mg/dL AST 1099 H (15-37) IU/L ALT 473 H (14-63) IU/L Alkaline Phosphatase 155 H (46-116) U/L Troponin I (0.000-0.056) ng/mL B-Natriuretic Peptide (<100) PG/ML Total Protein 5.5 L (6.4-8.2) g/dL Albumin 2.8 L (3.4-5.0) g/dL Globulin 2.7 (2.6-4.0) g/dL Albumin/Globulin Ratio 1.0 (0.9-1.6) Triglycerides 57 (0-200) mg/dL Cholesterol 151 (50-200) mg/dL LDL Cholesterol, Calc 122 (60-180) mg/dL VLDL Cholesterol 11 (5-55) mg/dL HDL Cholesterol 18 L (40-60) mg/dL Cholesterol/HDL Ratio 8.4 H (3.3-6.0) Vitamin B12 1132 H (193-986) pg/mL Folate 14.30 (8.60-58.90) ng/mL Urine Color Urine Appearance Urine pH (5.0-8.0) Ur Specific Rill[place] (1.001-1.035) Urine Protein (NEGATIVE) mg/dL Urine Glucose (UA) (NEGATIVE) mg/dL Urine Ketones (NEGATIVE) mg/dL Urine Occult Blood (NEGATIVE) Urine Nitrite (NEGATIVE) Urine Bilirubin (NEGATIVE) Urine Ictotest Urine Urobilinogen (<2.0) EU/dL Ur Leukocyte Esterase (NEGATIVE) Urine RBC (0-2/HPF) Urine WBC (0-5/HPF) Ur Epithelial Cells (NONE-FEW) Urine Bacteria (NEGATIVE) Hyaline Casts (0-2/LPF) Urine Mucus (NONE-MOD) Result Diagrams: 03/14/19 06:17 03/14/19 06:17 Imaging Impressions Last 24 hrs: GBUS shows thickening of the gallbladder wall with some pericholecystic fluid. No CBD dilatation noted. Consult PN Assessment/Plan (1) Anxiety SNOMED Code(s): 29695004 Code(s): F41.9 - ANXIETY DISORDER, UNSPECIFIED Priority: Low Current Visit: Yes (2) Atrial fibrillation with rapid ventricular response SNOMED Code(s): 786943118751303 Code(s): I48.91 - UNSPECIFIED ATRIAL FIBRILLATION Priority: Medium Current Visit: Yes (3) Hyperbilirubinemia SNOMED Code(s): 07947596 Code(s): E80.6 - OTHER DISORDERS OF BILIRUBIN METABOLISM Priority: High Current Visit: Yes (4) Hyperkalemia SNOMED Code(s): 66569773 Code(s): E87.5 - HYPERKALEMIA Priority: High Current Visit: Yes (5) Transaminitis SNOMED Code(s): 394168562, 647755829 Code(s): R74.0 - NONSPEC ELEV OF LEVELS OF TRANSAMNS & LACTIC ACID DEHYDRGNSE Priority: High Current Visit: Yes Problem List Initiated/Reviewed/Updated: Yes Plan: I think this is more of a primary hepatic process at this time. Negative ultrasound and PE [place]' sign. Liver edge is palpable at the right costal margin. I do not think is a primary cholecystitis and certainly not a cholangitis at the present time. There is nothing suggesting dilatation of the common bile duct. I think she would benefit from supportive care and close following of her LFT' s. If her bilirubin continues to climb, I would recommend an MRCP first. Repeat labs in the morning to follow her transaminitis and bilirubin. If this all resolves and she is discharged I would be happy to see her a couple of weeks after discharge and reassess her liver/biliary tract. In addition, she should establish care with an Vehicle Fare Collector regarding her atrial fibrillation and liver concerns. Thank you.
[2019-03-14 17:27] LABS: CARBON DIOXIDE,CO2 20.6 mmol/L (21.0-32.0); POTASSIUM,K 4.7 mmol/L (3.5-5.1)
[2019-03-14] MEDS ORDERED: Nicotine 14 MG/24 Hr Patch TRDERM SCH (18:45)
--- NOTE | 2019-03-14 18:47 | PCM.DCSUM1 ---
<Edmond Gamble - Last Filed: 03/14/19 18:48> Discharge Summary - Hospital Course Free Text/Narrative:: Discharge summary Admission date: March 13, 2019 Transfer date: March 14, 2019 Admission diagnosis: A. fib with RVR Elevated BNP, transaminitis, hyperbilirubinemia Discharge diagnoses:A. fib with RVR resolved, elevated BNP, transaminitis, hyperbilirubinemia: heart failure with reduced ejection fraction of 25%; severe to moderate mitral and tricuspid regurgitation. macrocytic anemia. Procedures: none Consultations: Dr. José Luis Nicolas of surgery. Hospital course: Patient is a 53-year-old female with a past medical history of A. fib, anxiety, tobacco abuse: presented to [facility] ED with abdominal discomfort and "swelling"; patient states for the past few weeks she has not taken her metoprolol secondary to moving to [place] from [place]. Of note patient also has been using [id number] cold medication, pseudoephedrine, to help alleviate sinus and nasal congestion. On arrival to [facility] ED she was found to have a rapid ventricular rate of 180; was given to doses of diltiazem 20; and metoprolol 50; with resolution of tachycardia; reverted to sinus overnight. Following morning, labs demonstrated elevated BNP, transaminitis, macrocytic anemia, hyperbilirubinemia, elevated B12. Chest x-ray showed mild cardiomegaly. Patient given 1 dose of furosemide 40 PO in evening with repeat dose in a.m. with minimal improvement. hyperkalemia was noticed in a.m.: 6.1. Given 1 dose of Kayexalate with resolution of hyperkalemia; repeat BMP in afternoon showed potassium 4.7. No overt EKG changes throughout the day. Patient was continued on telemetry. UA resulted in positive bacteria and nitrites; patient was asymptomatic, denied any dysuria, polyuria, foul-smelling urine, and/or hematuria: initiated on Bactrim nonetheless. Culture still pending. Urine tox screen: positive for methamphetamine; however patient has been on over -the-counter Sudafed medication; amphetamine negative. No drug history. right upper quadrant ultrasound: concerns for acalculous cholecystitis; Dr. José Luis Nicolas of surgery was consulted: recommended MRCP if bilirubin elevated ; see attached note. Afternoon: Echocardiogram showed ejection fraction of 25% with moderate to severe mitral and tricuspid regurgitation; once results of echocardiogram returned; decision was made to transfer patient to [facility]. patient hemodynamically stable. At discharge: patient denies any fevers, chills , body aches, chest pain, shortness of breath, abdominal pain, worsening of initial symptoms. Mildly anxious due to transfer however. Discharge instructions: transfer to [place] via ground ambulance. follow-up: discharged to [place], [place]. - Discharge Data Discharge Date: 03/14/19 Discharge Disposition: DC/Tfer to [facility] 02 Condition: Stable - Discharge Diagnosis/Problem(s) (1) Anxiety SNOMED Code(s): 73988171 ICD Code: F41.9 - ANXIETY DISORDER, UNSPECIFIED Status: Acute Priority: Low (2) Medical non-compliance SNOMED Code(s): 736560126 ICD Code: Z91.19 - PATIENT'S NONCOMPLIANCE W OTH MEDICAL TREATMENT AND REGIMEN Status: Acute (3) Transaminitis SNOMED Code(s): 354784197, 136564686 ICD Code: R74.0 - NONSPEC ELEV OF LEVELS OF TRANSAMNS & LACTIC ACID DEHYDRGNSE Status: Acute Priority: High (4) Macrocytic anemia SNOMED Code(s): 37610121 ICD Code: D53.9 - NUTRITIONAL ANEMIA, UNSPECIFIED Status: Acute (5) Hyperbilirubinemia SNOMED Code(s): 30784642 ICD Code: E80.6 - OTHER DISORDERS OF BILIRUBIN METABOLISM Status: Acute Priority: High (6) Atrial fibrillation with rapid ventricular response SNOMED Code(s): 649601966834614 ICD Code: I48.91 - UNSPECIFIED ATRIAL FIBRILLATION Status: Acute Priority : Medium (7) Hyperkalemia SNOMED Code(s): 24611934 ICD Code: E87.5 - HYPERKALEMIA Status: Acute Priority: High - Patient Instructions Diet: Heart Healthy Diet Fluid Restriction: 1000 mL Driving: Do Not Drive Notify Provider of: Fever, Increased Pain, Swelling and Redness Other/Special Instructions: Patient being transferred to [facility] for higher level of care. - Discharge Plan *PRESCRIPTION DRUG MONITORING PROGRAM REVIEWED*: No *COPY OF PRESCRIPTION DRUG MONITORING REPORT IN PATIENT IDALMIS: No Home Medications: Home Meds Enoxaparin [Lovenox] 60 mg SUBCUT Q12H syringe 03/14/19 [Rx] Metoprolol Tartrate [Lopressor] 12.5 mg PO Q12H tablet 03/14/19 [Rx] Nicotine [Habitrol] 14 mg TRDERM DAILY patch 03/14/19 [Rx] Sulfamethoxazole/Trimethoprim [Septra DS] 1 tab PO BID tablet 03/14/19 [Rx] Oxygen Therapy Mode: Room Air Referrals: José Luis Nicolas MD [Physician] - 03/27/19 9:00 am - Discharge Summary/Plan Comment DC Time >30 min.: No - Patient Data Vitals - Most Recent: Last Vital Signs Temp 98.8 F 03/14/19 18:32 Pulse 99 03/14/19 18:32 Resp 18 03/14/19 18:32 BP 118/72 03/14/19 18:32 Pulse Ox 92 L 03/14/19 18:32 Weight - Most Recent: 66.315 kg I&O - Last 24 hours: Intake & Output 03/14/19 03/14/19 03/14/19 06:59 14:59 22:59 Intake Total 400 1437 Output Total 200 650 Balance 200 787 Lab Results - Last 24 hrs: Laboratory Results - last 24 hr 03/13/19 03/13/19 03/13/19 Range/Units 18:16 18:16 18:16 WBC (4.0-11.0) K/uL RBC (4.30-5.90) M/uL Hgb (12.0-16.0) g/dL Hct (36.0-46.0) % MCV (80.0-98.0) fL MCH (27.0-32.0) pg MCHC (31.0-37.0) g/dL RDW Std Deviation (28.0-62.0) fl RDW Coeff of Papo (11.0-15.0) % Plt Count (150-400) K/uL MPV (7.40-12.00) fL Neut % (Auto) (48.0-80.0) % Lymph % (Auto) (16.0-40.0) % Brooks % (Auto) (0.0-15.0) % Eos % (Auto) (0.0-7.0) % Baso % (Auto) (0.0-1.5) % Neut # (Auto) (1.4-5.7) K/uL Lymph # (Auto) (0.6-2.4) K/uL Brooks # (Auto) (0.0-0.8) K/uL Eos # (Auto) (0.0-0.7) K/uL Baso # (Auto) (0.0-0.1) K/uL Nucleated RBC % /100WBC Nucleated RBCs # K/uL INR 1.53 Sodium 139 (136-145) mmol/L Potassium 3.9 (3.5-5.1) mmol/L Chloride 103 (98-107) mmol/L Carbon Dioxide 22.6 (21.0-32.0) mmol/L BUN 15 (7.0-18.0) mg/dL Creatinine 1.0 (0.6-1.0) mg/dL Est Cr Clr Drug Dosing 54.89 mL/min Estimated GFR (MDRD) 57.6 ml/min Glucose 143 H (74-106) mg/dL Calcium 9.2 (8.5-10.1) mg/dL Total Bilirubin 1.6 H (0.2-1.0) mg/dL AST 103 H (15-37) IU/L ALT 83 H (14-63) IU/L Alkaline Phosphatase 181 H (46-116) U/L Troponin I < 0.050 (0.000-0.056) ng/mL B-Natriuretic Peptide 1103 H (<100) PG/ML Total Protein 6.3 L (6.4-8.2) g/dL Albumin 3.2 L (3.4-5.0) g/dL Globulin 3.1 (2.6-4.0) g/dL Albumin/Globulin Ratio 1.0 (0.9-1.6) Triglycerides (0-200) mg/dL Cholesterol (50-200) mg/dL LDL Cholesterol, Calc (60-180) mg/dL VLDL Cholesterol (5-55) mg/dL HDL Cholesterol (40-60) mg/dL Cholesterol/HDL Ratio (3.3-6.0) Lipase (73-393) U/L Vitamin B12 (193-986) pg/mL Folate (8.60-58.90) ng/mL TSH 3rd Generation (0.36-3.74) uIU/mL Urine Color Urine Appearance Urine pH (5.0-8.0) Ur Specific Mulberry (1.001-1.035) Urine Protein (NEGATIVE) mg/dL Urine Glucose (UA) (NEGATIVE) mg/dL Urine Ketones (NEGATIVE) mg/dL Urine Occult Blood (NEGATIVE) Urine Nitrite (NEGATIVE) Urine Bilirubin (NEGATIVE) Urine Ictotest Urine Urobilinogen (<2.0) EU/dL Ur Leukocyte Esterase (NEGATIVE) Urine RBC (0-2/HPF) Urine WBC (0-5/HPF) Ur Epithelial Cells (NONE-FEW) Urine Bacteria (NEGATIVE) Hyaline Casts (0-2/LPF) Urine Mucus (NONE-MOD) Urine Opiates Screen (NEGATIVE) Ur Oxycodone Screen (NEGATIVE) Urine Methadone Screen (NEGATIVE) Ur Barbiturates Screen (NEGATIVE) Ur Phencyclidine Scrn (NEGATIVE) Ur Amphetamine Screen (NEGATIVE) U Methamphetamines Scrn (NEGATIVE) U Benzodiazepines Scrn (NEGATIVE) U Cocaine Metab Screen (NEGATIVE) U Marijuana (THC) Screen (NEGATIVE) Ethyl Alcohol mg/dL 03/13/19 03/13/19 03/14/19 Range/Units 19:14 19:14 06:17 WBC 11.57 H (4.0-11.0) K/uL RBC 3.79 L (4.30-5.90) M/uL Hgb 14.6 (12.0-16.0) g/dL Hct 44.3 (36.0-46.0) % MCV 116.9 H (80.0-98.0) fL MCH 38.5 H (27.0-32.0) pg MCHC 33.0 (31.0-37.0) g/dL RDW Std Deviation 64.7 H (28.0-62.0) fl RDW Coeff of Papo 15 (11.0-15.0) % Plt Count 143 L (150-400) K/uL MPV 13.20 H (7.40-12.00) fL Neut % (Auto) 76.1 (48.0-80.0) % Lymph % (Auto) 11.9 L (16.0-40.0) % Brooks % (Auto) 11.7 (0.0-15.0) % Eos % (Auto) 0.1 (0.0-7.0) % Baso % (Auto) 0.2 (0.0-1.5) % Neut # (Auto) 8.8 H (1.4-5.7) K/uL Lymph # (Auto) 1.4 (0.6-2.4) K/uL Brooks # (Auto) 1.4 H (0.0-0.8) K/uL Eos # (Auto) 0.0 (0.0-0.7) K/uL Baso # (Auto) 0.0 (0.0-0.1) K/uL Nucleated RBC % 0.6 /100WBC Nucleated RBCs # 0 K/uL INR Sodium (136-145) mmol/L Potassium (3.5-5.1) mmol/L Chloride (98-107) mmol/L Carbon Dioxide (21.0-32.0) mmol/L BUN (7.0-18.0) mg/dL Creatinine (0.6-1.0) mg/dL Est Cr Clr Drug Dosing mL/min Estimated GFR (MDRD) ml/min Glucose (74-106) mg/dL Calcium (8.5-10.1) mg/dL Total Bilirubin (0.2-1.0) mg/dL AST (15-37) IU/L ALT (14-63) IU/L Alkaline Phosphatase (46-116) U/L Troponin I (0.000-0.056) ng/mL B-Natriuretic Peptide (<100) PG/ML Total Protein (6.4-8.2) g/dL Albumin (3.4-5.0) g/dL Globulin (2.6-4.0) g/dL Albumin/Globulin Ratio (0.9-1.6) Triglycerides (0-200) mg/dL Cholesterol (50-200) mg/dL LDL Cholesterol, Calc (60-180) mg/dL VLDL Cholesterol (5-55) mg/dL HDL Cholesterol (40-60) mg/dL Cholesterol/HDL Ratio (3.3-6.0) Lipase (73-393) U/L Vitamin B12 (193-986) pg/mL Folate (8.60-58.90) ng/mL TSH 3rd Generation (0.36-3.74) uIU/mL Urine Color DARK YELLOW Urine Appearance SLT CLOUDY Urine pH 5.5 (5.0-8.0) Ur Specific Mulberry >= 1.030 (1.001-1.035) Urine Protein 100 H (NEGATIVE) mg/dL Urine Glucose (UA) NEGATIVE (NEGATIVE) mg/dL Urine Ketones NEGATIVE (NEGATIVE) mg/dL Urine Occult Blood TRACE-INTACT H (NEGATIVE) Urine Nitrite POSITIVE H (NEGATIVE) Urine Bilirubin MODERATE H (NEGATIVE) Urine Ictotest POSITIVE Urine Urobilinogen 2.0 H (<2.0) EU/dL Ur Leukocyte Esterase SMALL H (NEGATIVE) Urine RBC 1-3 (0-2/HPF) Urine WBC 4-7 (0-5/HPF) Ur Epithelial Cells FEW (NONE-FEW) Urine Bacteria 3+ H (NEGATIVE) Hyaline Casts 1-3 (0-2/LPF) Urine Mucus MODERATE (NONE-MOD) Urine Opiates Screen NEGATIVE (NEGATIVE) Ur Oxycodone Screen NEGATIVE (NEGATIVE) Urine Methadone Screen NEGATIVE (NEGATIVE) Ur Barbiturates Screen NEGATIVE (NEGATIVE) Ur Phencyclidine Scrn NEGATIVE (NEGATIVE) Ur Amphetamine Screen NEGATIVE (NEGATIVE) U Methamphetamines Scrn POSITIVE (NEGATIVE) U Benzodiazepines Scrn NEGATIVE (NEGATIVE) U Cocaine Metab Screen NEGATIVE (NEGATIVE) U Marijuana (THC) Screen NEGATIVE (NEGATIVE) Ethyl Alcohol mg/dL 03/14/19 03/14/19 03/14/19 Range/Units 06:17 06:17 06:17 WBC (4.0-11.0) K/uL RBC (4.30-5.90) M/uL Hgb (12.0-16.0) g/dL Hct (36.0-46.0) % MCV (80.0-98.0) fL MCH (27.0-32.0) pg MCHC (31.0-37.0) g/dL RDW Std Deviation (28.0-62.0) fl RDW Coeff of Papo (11.0-15.0) % Plt Count (150-400) K/uL MPV (7.40-12.00) fL Neut % (Auto) (48.0-80.0) % Lymph % (Auto) (16.0-40.0) % Brooks % (Auto) (0.0-15.0) % Eos % (Auto) (0.0-7.0) % Baso % (Auto) (0.0-1.5) % Neut # (Auto) (1.4-5.7) K/uL Lymph # (Auto) (0.6-2.4) K/uL Brooks # (Auto) (0.0-0.8) K/uL Eos # (Auto) (0.0-0.7) K/uL Baso # (Auto) (0.0-0.1) K/uL Nucleated RBC % /100WBC Nucleated RBCs # K/uL INR Sodium 136 (136-145) mmol/L Potassium 6.2 H (3.5-5.1) mmol/L Chloride 104 (98-107) mmol/L Carbon Dioxide 20.3 L (21.0-32.0) mmol/L BUN 19 H (7.0-18.0) mg/dL Creatinine 1.4 H (0.6-1.0) mg/dL Est Cr Clr Drug Dosing 39.21 mL/min Estimated GFR (MDRD) 39.0 ml/min Glucose 107 H (74-106) mg/dL Calcium 8.4 L (8.5-10.1) mg/dL Total Bilirubin 2.7 H (0.2-1.0) mg/dL AST 1099 H (15-37) IU/L ALT 473 H (14-63) IU/L Alkaline Phosphatase 155 H (46-116) U/L Troponin I (0.000-0.056) ng/mL B-Natriuretic Peptide (<100) PG/ML Total Protein 5.5 L (6.4-8.2) g/dL Albumin 2.8 L (3.4-5.0) g/dL Globulin 2.7 (2.6-4.0) g/dL Albumin/Globulin Ratio 1.0 (0.9-1.6) Triglycerides 57 (0-200) mg/dL Cholesterol 151 (50-200) mg/dL LDL Cholesterol, Calc 122 (60-180) mg/dL VLDL Cholesterol 11 (5-55) mg/dL HDL Cholesterol 18 L (40-60) mg/dL Cholesterol/HDL Ratio 8.4 H (3.3-6.0) Lipase (73-393) U/L Vitamin B12 1132 H (193-986) pg/mL Folate 14.30 (8.60-58.90) ng/mL TSH 3rd Generation (0.36-3.74) uIU/mL Urine Color Urine Appearance Urine pH (5.0-8.0) Ur Specific Mulberry (1.001-1.035) Urine Protein (NEGATIVE) mg/dL Urine Glucose (UA) (NEGATIVE) mg/dL Urine Ketones (NEGATIVE) mg/dL Urine Occult Blood (NEGATIVE) Urine Nitrite (NEGATIVE) Urine Bilirubin (NEGATIVE) Urine Ictotest Urine Urobilinogen (<2.0) EU/dL Ur Leukocyte Esterase (NEGATIVE) Urine RBC (0-2/HPF) Urine WBC (0-5/HPF) Ur Epithelial Cells (NONE-FEW) Urine Bacteria (NEGATIVE) Hyaline Casts (0-2/LPF) Urine Mucus (NONE-MOD) Urine Opiates Screen (NEGATIVE) Ur Oxycodone Screen (NEGATIVE) Urine Methadone Screen (NEGATIVE) Ur Barbiturates Screen (NEGATIVE) Ur Phencyclidine Scrn (NEGATIVE) Ur Amphetamine Screen (NEGATIVE) U Methamphetamines Scrn (NEGATIVE) U Benzodiazepines Scrn (NEGATIVE) U Cocaine Metab Screen (NEGATIVE) U Marijuana (THC) Screen (NEGATIVE) Ethyl Alcohol mg/dL 03/14/19 03/14/19 03/14/19 Range/Units 06:17 17:06 17:06 WBC (4.0-11.0) K/uL RBC (4.30-5.90) M/uL Hgb (12.0-16.0) g/dL Hct (36.0-46.0) % MCV (80.0-98.0) fL MCH (27.0-32.0) pg MCHC (31.0-37.0) g/dL RDW Std Deviation (28.0-62.0) fl RDW Coeff of Papo (11.0-15.0) % Plt Count (150-400) K/uL MPV (7.40-12.00) fL Neut % (Auto) (48.0-80.0) % Lymph % (Auto) (16.0-40.0) % Brooks % (Auto) (0.0-15.0) % Eos % (Auto) (0.0-7.0) % Baso % (Auto) (0.0-1.5) % Neut # (Auto) (1.4-5.7) K/uL Lymph # (Auto) (0.6-2.4) K/uL Brooks # (Auto) (0.0-0.8) K/uL Eos # (Auto) (0.0-0.7) K/uL Baso # (Auto) (0.0-0.1) K/uL Nucleated RBC % /100WBC Nucleated RBCs # K/uL INR Sodium 138 (136-145) mmol/L Potassium 4.7 (3.5-5.1) mmol/L Chloride 104 (98-107) mmol/L Carbon Dioxide 20.6 L (21.0-32.0) mmol/L BUN 19 H (7.0-18.0) mg/dL Creatinine 1.2 H (0.6-1.0) mg/dL Est Cr Clr Drug Dosing 45.74 mL/min Estimated GFR (MDRD) 46.6 ml/min Glucose 89 (74-106) mg/dL Calcium 8.3 L (8.5-10.1) mg/dL Total Bilirubin (0.2-1.0) mg/dL AST (15-37) IU/L ALT (14-63) IU/L Alkaline Phosphatase (46-116) U/L Troponin I (0.000-0.056) ng/mL B-Natriuretic Peptide (<100) PG/ML Total Protein (6.4-8.2) g/dL Albumin (3.4-5.0) g/dL Globulin (2.6-4.0) g/dL Albumin/Globulin Ratio (0.9-1.6) Triglycerides (0-200) mg/dL Cholesterol (50-200) mg/dL LDL Cholesterol, Calc (60-180) mg/dL VLDL Cholesterol (5-55) mg/dL HDL Cholesterol (40-60) mg/dL Cholesterol/HDL Ratio (3.3-6.0) Lipase 176 (73-393) U/L Vitamin B12 (193-986) pg/mL Folate (8.60-58.90) ng/mL TSH 3rd Generation 1.90 (0.36-3.74) uIU/mL Urine Color Urine Appearance Urine pH (5.0-8.0) Ur Specific Mulberry (1.001-1.035) Urine Protein (NEGATIVE) mg/dL Urine Glucose (UA) (NEGATIVE) mg/dL Urine Ketones (NEGATIVE) mg/dL Urine Occult Blood (NEGATIVE) Urine Nitrite (NEGATIVE) Urine Bilirubin (NEGATIVE) Urine Ictotest Urine Urobilinogen (<2.0) EU/dL Ur Leukocyte Esterase (NEGATIVE) Urine RBC (0-2/HPF) Urine WBC (0-5/HPF) Ur Epithelial Cells (NONE-FEW) Urine Bacteria (NEGATIVE) Hyaline Casts (0-2/LPF) Urine Mucus (NONE-MOD) Urine Opiates Screen (NEGATIVE) Ur Oxycodone Screen (NEGATIVE) Urine Methadone Screen (NEGATIVE) Ur Barbiturates Screen (NEGATIVE) Ur Phencyclidine Scrn (NEGATIVE) Ur Amphetamine Screen (NEGATIVE) U Methamphetamines Scrn (NEGATIVE) U Benzodiazepines Scrn (NEGATIVE) U Cocaine Metab Screen (NEGATIVE) U Marijuana (THC) Screen (NEGATIVE) Ethyl Alcohol 3 mg/dL Med Orders - Current: Current Medications Diltiazem HCl (Diltiazem) 20 mg IVPUSH ONETIME PRN PRN Reason: Tachycardia Enoxaparin Sodium (Lovenox) 60 mg SUBCUT Q12H [facility] Last Admin: 03/14/19 08:50 Dose: 60 mg Metoprolol Tartrate (Lopressor) 12.5 mg PO Q12H [facility] Last Admin: 03/14/19 08:45 Dose: 12.5 mg Ondansetron HCl (Zofran) 4 mg IVPUSH Q6H PRN PRN Reason: Nausea/Vomiting Last Admin: 03/13/19 22:10 Dose: 4 mg Trimethoprim/Sulfamethoxazole (Septra Ds) 1 tab PO BID [facility] Stop: 03/17/19 09:01 Last Admin: 03/14/19 08:46 Dose: 1 tab Discontinued Medications Aspirin (Aspirin) 324 mg PO ONETIME ONE Stop: 03/13/19 18:25 Last Admin: 03/13/19 18:29 Dose: 324 mg Diltiazem HCl (Diltiazem) 25 mg IVPUSH ONETIME ONE Stop: 03/13/19 18:22 Last Admin: 03/13/19 18:26 Dose: 25 mg Diltiazem HCl (Diltiazem) Confirm Administered Dose 25 mg .ROUTE .STK-MED ONE Stop: 03/13/19 18:22 Last Admin: 03/13/19 18:28 Dose: Not Given Diltiazem HCl (Diltiazem) 25 mg IVPUSH ONETIME ONE Stop: 03/13/19 18:47 Last Admin: 03/13/19 18:54 Dose: 25 mg Furosemide (Lasix) 40 mg PO ONETIME ONE Stop: 03/13/19 19:40 Last Admin: 03/13/19 21:23 Dose: Not Given Furosemide (Lasix) 40 mg PO ONETIME ONE Stop: 03/14/19 09:32 Last Admin: 03/14/19 10:05 Dose: 40 mg Furosemide (Lasix) 40 mg PO ONETIME ONE Stop: 03/14/19 17:37 Last Admin: 03/14/19 18:04 Dose: 40 mg Sodium Chloride (Normal Saline) 1,000 mls @ 999 mls/hr IV STAT ONE Stop: 03/13/19 19:23 Last Admin: 03/13/19 18:26 Dose: 999 mls/hr Sodium Chloride (Normal Saline) 1,000 mls @ 150 mls/hr IV ASDIRECTED BRITTANY Last Admin: 03/14/19 13:33 Dose: 150 mls/hr Sodium Chloride (Normal Saline) 500 mls @ 999 mls/hr IV .BOLUS [facility] Last Admin: 03/13/19 22:11 Dose: 999 mls/hr Metoprolol Tartrate (Lopressor) 50 mg PO ONETIME ONE Stop: 03/13/19 18:50 Last Admin: 03/13/19 19:00 Dose: 50 mg Metoprolol Tartrate (Lopressor) 25 mg PO Q12H [facility] Last Admin: 03/14/19 09:38 Dose: Not Given Non-Formulary Medication (Metoprolol Tartrate [Lopressor]) 10 mg PO BID [facility] Sodium Chloride (Saline Flush) 10 ml FLUSH ASDIRECTED PRN PRN Reason: Keep Vein Open Last Admin: 03/13/19 18:26 Dose: 10 ml Sodium Chloride (Saline Flush) 2.5 ml FLUSH ASDIRECTED PRN PRN Reason: Keep Vein Open Last Admin: 03/13/19 18:26 Dose: 2.5 ml Sodium Polystyrene Sulfonate (Kayexalate) 15 gm PO ONETIME ONE Stop: 03/14/19 09:31 Last Admin: 03/14/19 10:06 Dose: 15 gm Temazepam (Restoril) 15 mg PO BEDTIME PRN PRN Reason: Insomnia <Sammy Cobian - Last Filed: 03/15/19 07:13> Discharge Summary - Hospital Course Free Text/Narrative:: I have seen and examined the patient independently of Tower Crane Operator, Dr. Mavis MD. I have reviewed and agree with the plan of care as outlined for this patient by him. I have discussed the case with him. Please see orders. The patient was noted on 2-D echocardiogram to have markedly reduced ejection fraction of 25% with severe MR and TR. Cardiology services are not available. The patient had also had indications of hepatic congestion with elevations of her transaminases and edematous gallbladder. The patient was subsequently transferred to tertiary care center via ground ambulance as she was hemodynamically stable. - Patient Data Vitals - Most Recent: Last Vital Signs Temp 37.1 C 03/14/19 18:32 Pulse 99 03/14/19 18:32 Resp 20 03/14/19 18:32 BP 118/72 03/14/19 18:32 Pulse Ox 92 L 03/14/19 18:32 I&O - Last 24 hours: Intake & Output 03/14/19 03/15/19 03/15/19 22:59 06:59 14:59 Intake Total 1437 Output Total 650 Balance 787 Lab Results - Last 24 hrs: Laboratory Results - last 24 hr 03/13/19 03/14/19 03/14/19 Range/Units 19:14 06:17 06:17 Sodium 136 (136-145) mmol/L Potassium 6.2 H (3.5-5.1) mmol/L Chloride 104 (98-107) mmol/L Carbon Dioxide 20.3 L (21.0-32.0) mmol/L BUN 19 H (7.0-18.0) mg/dL Creatinine 1.4 H (0.6-1.0) mg/dL Est Cr Clr Drug Dosing 39.21 mL/min Estimated GFR (MDRD) 39.0 ml/min Glucose 107 H (74-106) mg/dL Calcium 8.4 L (8.5-10.1) mg/dL Total Bilirubin 2.7 H (0.2-1.0) mg/dL AST 1099 H (15-37) IU/L ALT 473 H (14-63) IU/L Alkaline Phosphatase 155 H (46-116) U/L Total Protein 5.5 L (6.4-8.2) g/dL Albumin 2.8 L (3.4-5.0) g/dL Globulin 2.7 (2.6-4.0) g/dL Albumin/Globulin Ratio 1.0 (0.9-1.6) Triglycerides (0-200) mg/dL Cholesterol (50-200) mg/dL LDL Cholesterol, Calc (60-180) mg/dL VLDL Cholesterol (5-55) mg/dL HDL Cholesterol (40-60) mg/dL Cholesterol/HDL Ratio (3.3-6.0) Lipase (73-393) U/L Vitamin B12 1132 H (193-986) pg/mL Folate 14.30 (8.60-58.90) ng/mL TSH 3rd Generation (0.36-3.74) uIU/mL Urine Opiates Screen NEGATIVE (NEGATIVE) Ur Oxycodone Screen NEGATIVE (NEGATIVE) Urine Methadone Screen NEGATIVE (NEGATIVE) Ur Barbiturates Screen NEGATIVE (NEGATIVE) Ur Phencyclidine Scrn NEGATIVE (NEGATIVE) Ur Amphetamine Screen NEGATIVE (NEGATIVE) U Methamphetamines Scrn POSITIVE (NEGATIVE) U Benzodiazepines Scrn NEGATIVE (NEGATIVE) U Cocaine Metab Screen NEGATIVE (NEGATIVE) U Marijuana (THC) Screen NEGATIVE (NEGATIVE) Ethyl Alcohol mg/dL 03/14/19 03/14/19 03/14/19 Range/Units 06:17 06:17 17:06 Sodium 138 (136-145) mmol/L Potassium 4.7 (3.5-5.1) mmol/L Chloride 104 (98-107) mmol/L Carbon Dioxide 20.6 L (21.0-32.0) mmol/L BUN 19 H (7.0-18.0) mg/dL Creatinine 1.2 H (0.6-1.0) mg/dL Est Cr Clr Drug Dosing 45.74 mL/min Estimated GFR (MDRD) 46.6 ml/min Glucose 89 (74-106) mg/dL Calcium 8.3 L (8.5-10.1) mg/dL Total Bilirubin (0.2-1.0) mg/dL AST (15-37) IU/L ALT (14-63) IU/L Alkaline Phosphatase (46-116) U/L Total Protein (6.4-8.2) g/dL Albumin (3.4-5.0) g/dL Globulin (2.6-4.0) g/dL Albumin/Globulin Ratio (0.9-1.6) Triglycerides 57 (0-200) mg/dL Cholesterol 151 (50-200) mg/dL LDL Cholesterol, Calc 122 (60-180) mg/dL VLDL Cholesterol 11 (5-55) mg/dL HDL Cholesterol 18 L (40-60) mg/dL Cholesterol/HDL Ratio 8.4 H (3.3-6.0) Lipase (73-393) U/L Vitamin B12 (193-986) pg/mL Folate (8.60-58.90) ng/mL TSH 3rd Generation (0.36-3.74) uIU/mL Urine Opiates Screen (NEGATIVE) Ur Oxycodone Screen (NEGATIVE) Urine Methadone Screen (NEGATIVE) Ur Barbiturates Screen (NEGATIVE) Ur Phencyclidine Scrn (NEGATIVE) Ur Amphetamine Screen (NEGATIVE) U Methamphetamines Scrn (NEGATIVE) U Benzodiazepines Scrn (NEGATIVE) U Cocaine Metab Screen (NEGATIVE) U Marijuana (THC) Screen (NEGATIVE) Ethyl Alcohol 3 mg/dL 03/14/19 Range/Units 17:06 Sodium (136-145) mmol/L Potassium (3.5-5.1) mmol/L Chloride (98-107) mmol/L Carbon Dioxide (21.0-32.0) mmol/L BUN (7.0-18.0) mg/dL Creatinine (0.6-1.0) mg/dL Est Cr Clr Drug Dosing mL/min Estimated GFR (MDRD) ml/min Glucose (74-106) mg/dL Calcium (8.5-10.1) mg/dL Total Bilirubin (0.2-1.0) mg/dL AST (15-37) IU/L ALT (14-63) IU/L Alkaline Phosphatase (46-116) U/L Total Protein (6.4-8.2) g/dL Albumin (3.4-5.0) g/dL Globulin (2.6-4.0) g/dL Albumin/Globulin Ratio (0.9-1.6) Triglycerides (0-200) mg/dL Cholesterol (50-200) mg/dL LDL Cholesterol, Calc (60-180) mg/dL VLDL Cholesterol (5-55) mg/dL HDL Cholesterol (40-60) mg/dL Cholesterol/HDL Ratio (3.3-6.0) Lipase 176 (73-393) U/L Vitamin B12 (193-986) pg/mL Folate (8.60-58.90) ng/mL TSH 3rd Generation 1.90 (0.36-3.74) uIU/mL Urine Opiates Screen (NEGATIVE) Ur Oxycodone Screen (NEGATIVE) Urine Methadone Screen (NEGATIVE) Ur Barbiturates Screen (NEGATIVE) Ur Phencyclidine Scrn (NEGATIVE) Ur Amphetamine Screen (NEGATIVE) U Methamphetamines Scrn (NEGATIVE) U Benzodiazepines Scrn (NEGATIVE) U Cocaine Metab Screen (NEGATIVE) U Marijuana (THC) Screen (NEGATIVE) Ethyl Alcohol mg/dL Med Orders - Current: Current Medications Discontinued Medications Aspirin (Aspirin) 324 mg PO ONETIME ONE Stop: 03/13/19 18:25 Last Admin: 03/13/19 18:29 Dose: 324 mg Diltiazem HCl (Diltiazem) 25 mg IVPUSH ONETIME ONE Stop: 03/13/19 18:22 Last Admin: 03/13/19 18:26 Dose: 25 mg Diltiazem HCl (Diltiazem) Confirm Administered Dose 25 mg .ROUTE .STK-MED ONE Stop: 03/13/19 18:22 Last Admin: 03/13/19 18:28 Dose: Not Given Diltiazem HCl (Diltiazem) 25 mg IVPUSH ONETIME ONE Stop: 03/13/19 18:47 Last Admin: 03/13/19 18:54 Dose: 25 mg Diltiazem HCl (Diltiazem) 20 mg IVPUSH ONETIME PRN PRN Reason: Tachycardia Enoxaparin Sodium (Lovenox) 60 mg SUBCUT Q12H [facility] Last Admin: 03/14/19 08:50 Dose: 60 mg Furosemide (Lasix) 40 mg PO ONETIME ONE Stop: 03/13/19 19:40 Last Admin: 03/13/19 21:23 Dose: Not Given Furosemide (Lasix) 40 mg PO ONETIME ONE Stop: 03/14/19 09:32 Last Admin: 03/14/19 10:05 Dose: 40 mg Furosemide (Lasix) 40 mg PO ONETIME ONE Stop: 03/14/19 17:37 Last Admin: 03/14/19 18:04 Dose: 40 mg Sodium Chloride (Normal Saline) 1,000 mls @ 999 mls/hr IV STAT ONE Stop: 03/13/19 19:23 Last Admin: 03/13/19 18:26 Dose: 999 mls/hr Sodium Chloride (Normal Saline) 1,000 mls @ 150 mls/hr IV ASDIRECTED [facility] Last Admin: 03/14/19 13:33 Dose: 150 mls/hr Sodium Chloride (Normal Saline) 500 mls @ 999 mls/hr IV .BOLUS [facility] Last Admin: 03/13/19 22:11 Dose: 999 mls/hr Metoprolol Tartrate (Lopressor) 50 mg PO ONETIME ONE Stop: 03/13/19 18:50 Last Admin: 03/13/19 19:00 Dose: 50 mg Metoprolol Tartrate (Lopressor) 25 mg PO Q12H [facility] Last Admin: 03/14/19 09:38 Dose: Not Given Metoprolol Tartrate (Lopressor) 12.5 mg PO Q12H [facility] Last Admin: 03/14/19 08:45 Dose: 12.5 mg Nicotine (Habitrol) 14 mg TRDERM DAILY [facility] Last Admin: 03/14/19 18:54 Dose: 14 mg Non-Formulary Medication (Metoprolol Tartrate [Lopressor]) 10 mg PO BID [facility] Ondansetron HCl (Zofran) 4 mg IVPUSH Q6H PRN PRN Reason: Nausea/Vomiting Last Admin: 03/13/19 22:10 Dose: 4 mg Sodium Chloride (Saline Flush) 10 ml FLUSH ASDIRECTED PRN PRN Reason: Keep Vein Open Last Admin: 03/13/19 18:26 Dose: 10 ml Sodium Chloride (Saline Flush) 2.5 ml FLUSH ASDIRECTED PRN PRN Reason: Keep Vein Open Last Admin: 03/13/19 18:26 Dose: 2.5 ml Sodium Polystyrene Sulfonate (Kayexalate) 15 gm PO ONETIME ONE Stop: 03/14/19 09:31 Last Admin: 03/14/19 10:06 Dose: 15 gm Temazepam (Restoril) 15 mg PO BEDTIME PRN PRN Reason: Insomnia Trimethoprim/Sulfamethoxazole (Septra Ds) 1 tab PO BID [facility] Stop: 03/17/19 09:01 Last Admin: 03/14/19 08:46 Dose: 1 tab
== END 2019-03-14 20:13 ==
LOC: MW.ED 18:10 → MW.MS 19:21
PROVIDERS: ADMIT Internal Medicine; ATTEND Internal Medicine
DX: I48.91 Unspecified atrial fibrillation (principal); I11.0 Hypertensive heart disease with heart failure; I50.20 Unspecified systolic (congestive) heart failure; I08.1 Rheumatic disorders of both mitral and tricuspid valves; E80.6 Other disorders of bilirubin metabolism; R74.0 Nonspecific elevation of levels of transaminase and lactic acid dehydrogenase [LDH]; R79.89 Other specified abnormal findings of blood chemistry; R10.13 Epigastric pain; R10.30 Lower abdominal pain, unspecified; D53.9 Nutritional anemia, unspecified; N39.0 Urinary tract infection, site not specified; E87.5 Hyperkalemia; F41.9 Anxiety disorder, unspecified; F17.200 Nicotine dependence, unspecified, uncomplicated; Z91.14 Patient's other noncompliance with medication regimen; Z79.899 Other long term (current) drug therapy
CPT/HCPCS: 36415; 71045; 76705; 80048; 80053; 80061; 80074; 80305; 80320; 81001; 82607; 82746; 83690; 83880; 84443; 84484; 85025; 85610; 87086; 87088; 87186; 93005; 93306; 96361; 96374; 99285; A9270; J1650; J2405; J3490; J7040; 96372; G0378; G0480

== ENCOUNTER 2020-01-18 14:40 | Emergency (ER) | payer SELFPAY ==
[2020-01-18] MEDS ORDERED: Sodium Chloride 0.9% 10 ML Syringe FLUSH PRN (14:50)
[2020-01-18] MEDS ORDERED: Sodium Chloride 0.9% 2.5 ML Syringe FLUSH PRN (14:50)
[2020-01-18] MEDS ORDERED: Metoprolol Tartrate 5 MG in Sodium Chloride 0.9% 50 ML IV ONE (14:53)
--- NOTE | 2020-01-18 14:59 | EDM.PDOC ---
ED HPI GENERAL MEDICAL PROBLEM - General Chief Complaint: Cardiovascular Problem Stated Complaint: A FIBRILLATION Time Seen by Provider: 01/18/20 14:47 - History of Present Illness INITIAL COMMENTS - FREE TEXT/NARRATIVE: History of present illness: [] Patient presents with concerns of an altered mental status at home she apparently had taken a nap and then her boyfriend was unable to wake her up when she was awakened and EMS arrived they noted that she had a heart rate in the 150s she has a history of A. fib she is not been on her medications because she has been traveling and forgot them she normally takes digoxin and metoprolol to control her rate she is now alert oriented person place and time denies any other substances besides Tylenol with Benadryl for sleep no alcohol no other drugs she denies any chest pain no trouble breathing and is back to her alert and oriented normal mental status. EMS gave her 25 mg of Cardizem IV in route and her heart rate is now in the 90s it is irregularly irregular. Review of systems: As per history of present illness and below otherwise all systems reviewed and negative. Past medical history: As per history of present illness and as reviewed below otherwise noncontributor y. Surgical history: As per history of present illness and as reviewed below otherwise noncontributory. Social history: No reported history of drug or alcohol abuse. Family history: As per history of present illness and as reviewed below otherwise noncontributory. Physical exam: HEENT: Atraumatic, normocephalic, pupils reactive, negative for conjunctival pallor or scleral icterus, mucous membranes moist, throat clear, neck supple, nontender, trachea midline. Lungs: Clear to auscultation, breath sounds equal bilaterally, chest nontender. Heart: S1S2, irregularly irregular, negative for clicks, rubs, or JVD. Abdomen: Soft, nondistended, nontender. Negative for masses or hepatosplenomegaly. Negative for costovertebral tenderness. Pelvis: Stable nontender. Genitourinary: Deferred. Rectal: Deferred. Extremities: Atraumatic, negative for cords or calf pain. Neurovascular unremarkable. Neuro: Awake, alert, oriented. Cranial nerves II through XII unremarkable. Cerebellum unremarkable. Motor and sensory unremarkable throughout. Exam nonfocal. Diagnostics: [] Therapeutics: [] Impression: [] Plan: Altered mental status work-up reassess the patient prescribed medications for her rate control until she can follow-up with primary care. [] Definitive disposition and diagnosis as appropriate pending reevaluation and review of above. - Related Data Allergies Allergy/AdvReac Type Severity Reaction Status Date / Time No Known Allergies Allergy Verified 01/18/20 14:47 Home Meds: Home Meds Digoxin 250 mg PO DAILY 01/18/20 [History] Digoxin [Digitek] 250 mcg PO DAILY #30 tablet 01/18/20 [Rx] Metoprolol Tartrate [Lopressor] 25 mg PO TID #90 tab 01/18/20 [Rx] Metoprolol/Hydrochlorothiazide [Metoprolol-HCTZ 100-25 MG] 1 tab PO TID 01/18/20 [History] lisinopriL [Lisinopril] 10 mg PO BID 01/18/20 [History] lisinopriL [Lisinopril] 20 mg PO BID #60 tablet 01/18/20 [Rx] Past Medical History HEENT History: Reports: None Cardiovascular History: Reports: Afib, Hypertension Respiratory History: Reports: None Gastrointestinal History: Reports: None Genitourinary History: Reports: Other (See Below) Other Genitourinary History: hx of kidney infections [employer] History: Reports: Musculoskeletal History: Reports: None Neurological History: Reports: None Psychiatric History: Reports: None Endocrine/Metabolic History: Reports: None Hematologic History: Reports: None Immunologic History: Reports: None Oncologic (Cancer) History: Reports: None Dermatologic History: Reports: None - Infectious Disease History Infectious Disease History: Reports: Chicken Pox - Past Surgical History Head Surgeries/Procedures: Reports: None HEENT Surgical History: Reports: None Cardiovascular Surgical History: Reports: None Respiratory Surgical History: Reports: None GI Surgical History: Reports: None Female Surgical History: Reports: Section, Other (See Below) Other Female Surgeries/Procedures: partial tubal ligation Endocrine Surgical History: Reports: None Neurological Surgical History: Reports: None Musculoskeletal Surgical History: Reports: None Oncologic Surgical History: Reports: None Dermatological Surgical History: Reports: None Social & Family History - Family History Family Medical History: Noncontributory - Caffeine Use Caffeine Use: Reports: Coffee ED ROS GENERAL - Review of Systems Review Of Systems: See Below ED EXAM, GENERAL - Physical Exam Exam: See Below EKG INTERPRETATION EKG Interpretation Comments: EKG is atrial fibrillation at 90 bpm no ischemic changes normal axis otherwise normal EKG. Read and interpreted by me Course - Vital Signs Last Recorded V/S: Last Vital Signs Temp 36.3 C 01/18/20 14:49 Pulse 83 01/18/20 17:49 Resp 18 01/18/20 17:49 BP 113/81 01/18/20 17:19 Pulse Ox 96 01/18/20 17:49 - Orders/Labs/Meds Labs: Laboratory Tests 01/18/20 01/18/20 01/18/20 Range/Units 14:57 14:57 15:15 WBC 5.44 (4.0-11.0) K/uL RBC 3.61 L (4.30-5.90) M/uL Hgb 12.9 (12.0-16.0) g/dL Hct 38.2 (36.0-46.0) % MCV 105.8 H (80.0-98.0) fL MCH 35.7 H (27.0-32.0) pg MCHC 33.8 (31.0-37.0) g/dL RDW Std Deviation 68.1 H (28.0-62.0) fl RDW Coeff of Papo 18 H (11.0-15.0) % Plt Count 79 L (150-400) K/uL MPV 12.60 H (7.40-12.00) fL Neut % (Auto) 86.7 H (48.0-80.0) % Lymph % (Auto) 8.1 L (16.0-40.0) % Burnett % (Auto) 4.6 (0.0-15.0) % Eos % (Auto) 0.2 (0.0-7.0) % Baso % (Auto) 0.4 (0.0-1.5) % Neut # (Auto) 4.7 (1.4-5.7) K/uL Lymph # (Auto) 0.4 L (0.6-2.4) K/uL Burnett # (Auto) 0.3 (0.0-0.8) K/uL Eos # (Auto) 0.0 (0.0-0.7) K/uL Baso # (Auto) 0.0 (0.0-0.1) K/uL Nucleated RBC % 0.0 /100WBC Nucleated RBCs # 0 K/uL Sodium 137 (136-145) mmol/L Potassium 3.6 (3.5-5.1) mmol/L Chloride 100 (98-107) mmol/L Carbon Dioxide 19.1 L (21.0-32.0) mmol/L BUN 9 (7.0-18.0) mg/dL Creatinine 1.0 (0.6-1.0) mg/dL Est Cr Clr Drug Dosing 54.24 mL/min Estimated GFR (MDRD) 57.4 ml/min Glucose 171 H (74-106) mg/dL Calcium 8.6 (8.5-10.1) mg/dL Total Bilirubin 1.4 H (0.2-1.0) mg/dL AST 197 H (15-37) IU/L ALT 126 H (14-63) IU/L Alkaline Phosphatase 173 H (46-116) U/L Troponin I < 0.050 (0.000-0.056) ng/mL Total Protein 6.4 (6.4-8.2) g/dL Albumin 3.3 L (3.4-5.0) g/dL Globulin 3.1 (2.6-4.0) g/dL Albumin/Globulin Ratio 1.1 (0.9-1.6) Urine Color YELLOW Urine Appearance SLT CLOUDY Urine pH 6.5 (5.0-8.0) Ur Specific Elmer 1.025 (1.001-1.035) Urine Protein 30 H (NEGATIVE) mg/dL Urine Glucose (UA) NEGATIVE (NEGATIVE) mg/dL Urine Ketones 15 H (NEGATIVE) mg/dL Urine Occult Blood TRACE-INTACT H (NEGATIVE) Urine Nitrite NEGATIVE (NEGATIVE) Urine Bilirubin NEGATIVE (NEGATIVE) Urine Urobilinogen 1.0 (<2.0) EU/dL Ur Leukocyte Esterase SMALL H (NEGATIVE) Urine RBC 1-3 (0-2/HPF) Urine WBC 20-25 (0-5/HPF) Ur Epithelial Cells MODERATE (NONE-FEW) Urine Bacteria MANY (NEGATIVE) Urine Opiates Screen (NEGATIVE) Ur Oxycodone Screen (NEGATIVE) Urine Methadone Screen (NEGATIVE) Ur Barbiturates Screen (NEGATIVE) Ur Phencyclidine Scrn (NEGATIVE) Ur Amphetamine Screen (NEGATIVE) U Methamphetamines Scrn (NEGATIVE) U Benzodiazepines Scrn (NEGATIVE) U Cocaine Metab Screen (NEGATIVE) U Marijuana (THC) Screen (NEGATIVE) Ethyl Alcohol < 3.0 mg/dL 01/18/20 Range/Units 15:15 WBC (4.0-11.0) K/uL RBC (4.30-5.90) M/uL Hgb (12.0-16.0) g/dL Hct (36.0-46.0) % MCV (80.0-98.0) fL MCH (27.0-32.0) pg MCHC (31.0-37.0) g/dL RDW Std Deviation (28.0-62.0) fl RDW Coeff of Papo (11.0-15.0) % Plt Count (150-400) K/uL MPV (7.40-12.00) fL Neut % (Auto) (48.0-80.0) % Lymph % (Auto) (16.0-40.0) % Burnett % (Auto) (0.0-15.0) % Eos % (Auto) (0.0-7.0) % Baso % (Auto) (0.0-1.5) % Neut # (Auto) (1.4-5.7) K/uL Lymph # (Auto) (0.6-2.4) K/uL Burnett # (Auto) (0.0-0.8) K/uL Eos # (Auto) (0.0-0.7) K/uL Baso # (Auto) (0.0-0.1) K/uL Nucleated RBC % /100WBC Nucleated RBCs # K/uL Sodium (136-145) mmol/L Potassium (3.5-5.1) mmol/L Chloride (98-107) mmol/L Carbon Dioxide (21.0-32.0) mmol/L BUN (7.0-18.0) mg/dL Creatinine (0.6-1.0) mg/dL Est Cr Clr Drug Dosing mL/min Estimated GFR (MDRD) ml/min Glucose (74-106) mg/dL Calcium (8.5-10.1) mg/dL Total Bilirubin (0.2-1.0) mg/dL AST (15-37) IU/L ALT (14-63) IU/L Alkaline Phosphatase (46-116) U/L Troponin I (0.000-0.056) ng/mL Total Protein (6.4-8.2) g/dL Albumin (3.4-5.0) g/dL Globulin (2.6-4.0) g/dL Albumin/Globulin Ratio (0.9-1.6) Urine Color Urine Appearance Urine pH (5.0-8.0) Ur Specific Elmer (1.001-1.035) Urine Protein (NEGATIVE) mg/dL Urine Glucose (UA) (NEGATIVE) mg/dL Urine Ketones (NEGATIVE) mg/dL Urine Occult Blood (NEGATIVE) Urine Nitrite (NEGATIVE) Urine Bilirubin (NEGATIVE) Urine Urobilinogen (<2.0) EU/dL Ur Leukocyte Esterase (NEGATIVE) Urine RBC (0-2/HPF) Urine WBC (0-5/HPF) Ur Epithelial Cells (NONE-FEW) Urine Bacteria (NEGATIVE) Urine Opiates Screen NEGATIVE (NEGATIVE) Ur Oxycodone Screen NEGATIVE (NEGATIVE) Urine Methadone Screen NEGATIVE (NEGATIVE) Ur Barbiturates Screen NEGATIVE (NEGATIVE) Ur Phencyclidine Scrn NEGATIVE (NEGATIVE) Ur Amphetamine Screen NEGATIVE (NEGATIVE) U Methamphetamines Scrn NEGATIVE (NEGATIVE) U Benzodiazepines Scrn NEGATIVE (NEGATIVE) U Cocaine Metab Screen NEGATIVE (NEGATIVE) U Marijuana (THC) Screen NEGATIVE (NEGATIVE) Ethyl Alcohol mg/dL Meds: Medications Discontinued Medications Generic Name Dose Route Start Last Admin Trade Name Freq PRN Reason Stop Dose Admin Metoprolol Tartrate 5 mg/ 55 mls @ 100 mls/hr 01/18/20 14:53 01/18/20 15:46 Sodium Chloride IV 01/18/20 15:25 100 mls/hr ONETIME ONE Administration Sodium Chloride 10 ml 01/18/20 14:50 01/18/20 16:15 Saline Flush FLUSH 10 ml ASDIRECTED PRN Administration Keep Vein Open Sodium Chloride 2.5 ml 01/18/20 14:50 01/18/20 16:15 Saline Flush FLUSH 2.5 ml ASDIRECTED PRN Administration Keep Vein Open Departure - Departure Time of Disposition: 18:00 Disposition: Home, Self-Care 01 Clinical Impression: Afib, Altered mental status Prescriptions: Digoxin [Digitek] 250 mcg PO DAILY #30 tablet lisinopriL [Lisinopril] 20 mg PO BID #60 tablet Metoprolol Tartrate [Lopressor] 25 mg PO TID #90 tab Instructions: Atrial Fibrillation, [id number] Referrals: Malcolm Sultana MD [Primary Care Provider] - Forms: ED Department Discharge Additional Instructions: The following information is given to patients seen in the emergency department who are being discharged to home. This information is to outline your options for follow-up care. We provide all patients seen in our emergency department with a follow-up referral. The need for follow-up, as well as the timing and circumstances, are variable depending upon the specifics of your emergency department visit. If you don't have a primary care physician on staff, we will provide you with a referral. We always advise you to contact your personal physician following an emergency department visit to inform them of the circumstance of the visit and for follow-up with them and/or the need for any referrals to a consulting s pecialist. The emergency department will also refer you to a specialist when appropriate. This referral assures that you have the opportunity for follow-up care with a specialist. All of these measure are taken in an effort to provide you with optimal care, which includes your follow-up. Under all circumstances we always encourage you to contact your private physician who remains a resource for coordinating your care. When calling for follow-up care, please make the office aware that this follow-up is from your recent emergency room visit. If for any reason you are refused follow-up, please contact the [facility] Emergency Department at and asked to speak to the emergency department charge nurse. [facility] [address] [place] [id number] [id number] Sepsis Event Note (ED) - Evaluation Sepsis Screening Result: No Definite Risk
--- NOTE | 2020-01-18 15:28 | CR ---
Chest: Portable view of the chest was obtained. Comparison: Prior chest x-ray of 03/13/19. Heart is mildly enlarged. Upper mediastinum is normal. Lungs are clear with no acute parenchymal change. Multiple old healed left-sided rib fractures are noted. Impression: 1. Heart size mildly enlarged. 2. Nothing acute is seen. Diagnostic code #2 This report was dictated in MDT
[2020-01-18 15:35] LABS: BLOOD UREA NITROGEN,BUN 9 mg/dL (7.0-18.0); CARBON DIOXIDE,CO2 19.1 mmol/L (21.0-32.0); CHLORIDE,CL 100 mmol/L (98-107); GLUCOSE RANDOM 171 mg/dL (74-106); POTASSIUM,K 3.6 mmol/L (3.5-5.1); SODIUM,NA 137 mmol/L (136-145)
== END 2020-01-18 18:19 | disposition home or self-care (01) ==
LOC: MW.ED 14:40
DX: R41.82 Altered mental status, unspecified (principal); I10 Essential (primary) hypertension; I48.91 Unspecified atrial fibrillation; Z79.899 Other long term (current) drug therapy
CPT/HCPCS: 36415; 71045; 80053; 80305; 80307; 81001; 84484; 85025; 93005; 96365; 99285; J3490; J7050; 99284

== ENCOUNTER 2021-11-13 08:28 | Emergency (ER) | payer SELFPAY | END 2021-11-13 10:27 | LOC: MW.ED 08:28 | DX: I10 Essential (primary) hypertension (principal); I48.91 Unspecified atrial fibrillation; Z79.899 Other long term (current) drug therapy | CPT/HCPCS: 99283 ==

== ENCOUNTER 2022-05-11 19:21 | Inpatient (IN) | payer SELFPAY ==
[2022-05-11] MEDS ORDERED: Albuterol/Ipratropium 3.0-0.5 MG/3 ML Neb Soln ONE (19:24)
[2022-05-11] MEDS ORDERED: Sodium Chloride 0.9% 2.5 ML Syringe FLUSH PRN (19:30)
[2022-05-11] MEDS ORDERED: Sodium Chloride 0.9% 10 ML Syringe FLUSH PRN (19:30)
[2022-05-11] MEDS ORDERED: Sodium Chloride 0.9% 1,000 ML IV ONE (19:30)
[2022-05-11] MEDS ORDERED: Diltiazem 100 MG in Sodium Chloride 0.9% 100 ML IV SCH (19:45)
[2022-05-11 20:38] LABS: BLOOD UREA NITROGEN,BUN 16 mg/dL (7.0-18.0); CARBON DIOXIDE,CO2 22.4 mmol/L (21.0-32.0); CHLORIDE,CL 103 mmol/L (98-107); GLUCOSE RANDOM 186 mg/dL (74-106); POTASSIUM,K 3.4 mmol/L (3.5-5.1); SODIUM,NA 140 mmol/L (136-145)
[2022-05-11 20:43] LABS: ESTIMATED GFR 74 mL/min (>60)
[2022-05-11 20:50] LABS: CORONAVIRUS COVID-19 NAA NEGATIVE (NEGATIVE); INFLUENZA A NAA NEGATIVE (NEGATIVE); INFLUENZA B NAA NEGATIVE (NEGATIVE); RESPIRATORY SYNCYTIAL VIR NAA NEGATIVE (NEGATIVE)
[2022-05-11] MEDS ORDERED: Furosemide 40 MG/4 ML VIAL IVPUSH ONE (21:29)
[2022-05-11] MEDS ORDERED: methylPREDNISolone Sodium Succinate 125 MG/2 ML SDV IVPUSH ONE (21:30)
[2022-05-11] MEDS ORDERED: Metoprolol Tartrate 5 MG/5 ML SDV IVPUSH ONE (22:02)
[2022-05-11] MEDS ORDERED: Diltiazem 120 MG Cap.CD PO ONE (22:03)
[2022-05-11] MEDS ORDERED: cefTRIAXone 1 GM in Sodium Chloride 0.9% 50 ML IV ONE (22:22)
[2022-05-12] MEDS ORDERED: Ondansetron 4 MG/2 ML SDV IVPUSH PRN (00:42)
[2022-05-12] MEDS ORDERED: Albuterol/Ipratropium 3.0-0.5 MG/3 ML Neb Soln NEB PRN (00:42)
[2022-05-12] MEDS ORDERED: Acetaminophen 325 MG Tab PO PRN (00:42)
[2022-05-12] MEDS ORDERED: Enoxaparin 40 MG/0.4 ML Syringe SUBCUT SCH (00:45)
[2022-05-12] MEDS ORDERED: Pantoprazole 40 MG in Sodium Chloride 0.9% 10 ML IVPUSH SCH (00:45)
[2022-05-12] MEDS ORDERED: Diltiazem 25 MG/5 ML SDV IVPUSH PRN (00:46)
[2022-05-12 07:57] LABS: CARBON DIOXIDE,CO2 23.9 mmol/L (21.0-32.0); POTASSIUM,K 4.1 mmol/L (3.5-5.1)
[2022-05-12] MEDS ORDERED: Furosemide 40 MG/4 ML VIAL IVPUSH SCH (09:00)
[2022-05-12] MEDS ORDERED: Azelastine [Astelin Nasal Soln] 30 ML Bottle NASBOTH PRN (09:29)
[2022-05-12] MEDS ORDERED: Escitalopram 10 MG Tab PO SCH (09:30)
[2022-05-12] MEDS ORDERED: Ascorbic Acid 500 MG Tab PO SCH (09:30)
[2022-05-12] MEDS ORDERED: Magnesium Oxide 400 MG Tab PO SCH (09:30)
[2022-05-12] MEDS ORDERED: Metoprolol Succinate 50 MG Tab.ER PO SCH (09:45)
[2022-05-12] MEDS ORDERED: Diltiazem 120 MG Cap.CD PO SCH (11:00)
[2022-05-12] MEDS ORDERED: Warfarin Sliding Scale PO SCH (14:00)
[2022-05-12] MEDS ORDERED: Warfarin 5 MG Tab PO SCH (15:00)
[2022-05-12] MEDS ORDERED: cefTRIAXone 1 GM in Sodium Chloride 0.9% 50 ML IV SCH (20:00)
[2022-05-12] MEDS ORDERED: QUEtiapine 25 MG Tab PO SCH (21:00)
[2022-05-13] MEDS ORDERED: Lisinopril 10 MG Tab PO SCH (09:00)
== END 2022-05-12 18:59 | disposition home or self-care (01) | DRG 309 ==
LOC: MW.ED 19:21 → MW.MS 05-12 00:26
PROVIDERS: ADMIT Student in an Organized Health Care Education/Training Program; ATTEND Student in an Organized Health Care Education/Training Program
DX: I48.92 Unspecified atrial flutter (principal); N39.0 Urinary tract infection, site not specified; I48.91 Unspecified atrial fibrillation; F41.9 Anxiety disorder, unspecified; F17.210 Nicotine dependence, cigarettes, uncomplicated; Z20.822 Contact with and (suspected) exposure to COVID-19; I11.0 Hypertensive heart disease with heart failure; I50.9 Heart failure, unspecified; Z79.899 Other long term (current) drug therapy; Z86.19 Personal history of other infectious and parasitic diseases; Z79.01 Long term (current) use of anticoagulants; Z98.51 Tubal ligation status
CPT/HCPCS: 0241U; 36415; 71045; 71045-26; 80053; 80305-QW; 80307; 81001; 83605; 83735; 83880; 84100; 84443; 84484; 85025; 85610; 87040; 87086; 87088; 87186; 93005; 93306; 96365; 96366; 96367; 96375; 99235; 99285-25; A9270-GY; C9113; J0696; J1650; J1940; J2930; J3490; J7030

== ENCOUNTER 2022-06-09 15:45 | Emergency (ER) | payer SELFPAY ==
[2022-06-09] MEDS ORDERED: Sodium Chloride 0.9% 20 ML SDV IV PRN (15:53)
[2022-06-09] MEDS ORDERED: Sodium Chloride 0.9% 10 ML Syringe FLUSH PRN (15:53)
[2022-06-09] MEDS ORDERED: Ondansetron 4 MG/2 ML SDV IVPUSH ONE (15:53)
[2022-06-09] MEDS ORDERED: Sodium Chloride 0.9% 2.5 ML Syringe FLUSH PRN (15:53)
[2022-06-09] MEDS ORDERED: Iopamidol 755 MG/ML 500 ML Multipack Bottle IVPUSH ONE ×2 (17:01)
[2022-06-09 17:26] LABS: CARBON DIOXIDE,CO2 25.5 mmol/L (21.0-32.0); POTASSIUM,K 4.4 mmol/L (3.5-5.1)
[2022-06-09] MEDS ORDERED: Heparin Sodium/0.45% NaCl 500 ML ONE (17:43)
[2022-06-09] MEDS ORDERED: Aspirin 300 MG Supp ONE (17:43)
[2022-06-09] MEDS ORDERED: Aspirin 300 MG Supp RECTAL SCH (17:45)
[2022-06-09] MEDS ORDERED: Heparin Sodium/0.45% NaCl 500 ML IV SCH (17:45)
[2022-06-09 18:08] LABS: CORONAVIRUS COVID-19 NAA NEGATIVE (NEGATIVE); INFLUENZA A NAA NEGATIVE (NEGATIVE); INFLUENZA B NAA NEGATIVE (NEGATIVE); RESPIRATORY SYNCYTIAL VIR NAA NEGATIVE (NEGATIVE)
== END 2022-06-09 17:50 ==
LOC: MW.ED 15:45
DX: I63.9 Cerebral infarction, unspecified (principal); Z20.822 Contact with and (suspected) exposure to COVID-19
CPT/HCPCS: 0241U; 36415; 70450; 70496; 70498; 71045; 80053; 80305; 80307; 81001; 84484; 85025; 85610; 85730; 87086; 87088; 87186; 93005; 96374; 96375; 99285; A9270; J1644; J2405; J3490; Q9967

== ENCOUNTER 2025-04-05 00:44 | Emergency (ER) | payer SELFPAY ==
[2025-04-05] MEDS ORDERED: Sodium Chloride 0.9% 10 ML Syringe FLUSH PRN (00:47)
[2025-04-05] MEDS ORDERED: Sodium Chloride 0.9% 2.5 ML Syringe FLUSH PRN (00:47)
[2025-04-05 01:23] LABS: BASOPHILS ABSOLUTE AUTO 0.05 K/uL (0.00-0.20); BASOPHILS PERCENT AUTO 0.5 % (0.0-1.0); EOSINOPHILS ABSOLUTE AUTO 0.12 K/uL (0.00-0.45); EOSINOPHILS PERCENT AUTO 1.2 % (0.0-6.0); IMMATURE GRAN ABSOLUTE AUTO 0.05 K/uL (0.00-0.05); IMMATURE GRAN PERCENT AUTO 0.5 % (0.0-0.4); LYMPHOCYTES ABSOLUTE AUTO 2.15 K/uL (1.00-4.80); LYMPHOCYTES PERCENT AUTO 21.2 % (24.0-44.0); MEAN PLATELET VOLUME 12.3 fL (9.4-12.3); MONOCYTES ABSOLUTE AUTO 0.73 K/uL (0.00-0.80); MONOCYTES PERCENT AUTO 7.2 % (0.0-8.0); NEUTROPHILS ABSOLUTE AUTO 7.05 K/uL (1.80-7.70); NEUTROPHILS PERCENT AUTO 69.4 % (41.0-71.0); NRBC ABSOLUTE 0.00 K/uL (0.00-0.02); NRBC PERCENT 0.0 /100WBC (0.0-0.2); PLATELET COUNT,PLT 157 K/uL (150-400); RED BLOOD CELL COUNT 3.90 M/uL (4.10-5.30); WHITE BLOOD CELL COUNT,WBC 10.15 K/uL (3.9-11.3)
[2025-04-05] MEDS: Iopamidol 755 MG/ML 500 ML Multipack Bottle IVPUSH STA (01:25)
[2025-04-05] MEDS: Ondansetron 4 MG/2 ML SDV IVPUSH ONE (01:34)
[2025-04-05 01:37] LABS: INR 1.23 (0.86-1.11); PTT,PARTIAL THROMBOPLSTIN TIME 25.1 SEC (23.9-30.7)
[2025-04-05 01:53] LABS: A/G RATIO 1.1 (0.9-1.6); ALANINE AMINOTRANSFERASE,ALT 23 IU/L (14-63); ASPARTATE AMNIOTRANSFERASE,AST 21 IU/L (15-37); BILIRUBIN TOTAL 0.4 mg/dL (0.2-1.0); BLOOD UREA NITROGEN,BUN 18 mg/dL (7.0-18.0); CARBON DIOXIDE,CO2 25.7 mmol/L (21.0-32.0); CHLORIDE,CL 104 mmol/L (98-107); ETHANOL BLOOD MEDICAL <3 mg/dL; GLUCOSE RANDOM 105 mg/dL (74-106); POTASSIUM,K 4.8 mmol/L (3.5-5.1); PROTEIN TOTAL,TP 5.8 g/dL (6.4-8.2); SODIUM,NA 137 mmol/L (136-145); TSH ULTRASENSITIVE 4.21 uIU/mL (0.36-3.74)
[2025-04-05 02:00] LABS: CREATININE 1.2 mg/dL (0.6-1.0); EST CRCL DRUG DOSING (CG) 37.15 mL/min
[2025-04-05 02:02] LABS: ESTIMATED GFR 52 mL/min (>60)
[2025-04-05 02:55] LABS: T4 FREE 0.99 ng/dL (0.76-1.46)
== END 2025-04-05 02:39 ==
LOC: MW.ED 00:44
DX: I63.9 Cerebral infarction, unspecified (principal); I48.91 Unspecified atrial fibrillation; I10 Essential (primary) hypertension; Z79.01 Long term (current) use of anticoagulants; Z79.899 Other long term (current) drug therapy
CPT/HCPCS: 36415; 70450; 70496; 70498; 80053; 80307; 82947; 83735; 84439; 84443; 84484; 85025; 85610; 85730; 93005; 96374; 99285; J2405; J7030; Q9967